=== PATIENT | male | born 1965 | race Caucasian/White ===

== ENCOUNTER 2021-09-29 18:16 | Inpatient (IN) ==
[2021-09-29] MEDS: traZODone 50 MG TABLET PO SCH (21:02)
[2021-09-29] MEDS: Pregabalin 75 MG CAPSULE PO SCH (21:02)
[2021-09-29] MEDS: Apixaban 5 MG TABLET PO SCH (21:03)
[2021-09-29] MEDS: Furosemide 40 MG TABLET PO SCH (21:05)
[2021-09-30] MEDS ORDERED: lisinopriL 20 MG TABLET PO SCH (09:00)
[2021-09-30 10:11] LABS: Hematocrit 35.4 % (37.5-50.1); Hemoglobin 10.9 g/dL (12.9-16.9); Mean Corpuscular HGB Conc 30.8 g/dL (31.6-35.5); Mean Corpuscular Hemoglobin 26.6 pg (28.0-33.3); Mean Corpuscular Volume 86.3 fL (83.0-100.0); Mean Platelet Volume 11.4 fL (9.4-12.4); Platelet Count 181 K/mcL (140-400); Red Cell Distribution Width 17.2 % (11.5-14.5); White Blood Count 6.6 K/mcL (4.3-11.1)
[2021-09-30] MEDS: levoFLOXacin 750 MG TABLET PO SCH (10:24)
[2021-09-30] MEDS: Pregabalin 75 MG CAPSULE PO SCH ×2 (10:24→21:02)
[2021-09-30] MEDS: Fluconazole 100 MG TABLET PO SCH (10:24)
[2021-09-30] MEDS: Apixaban 5 MG TABLET PO SCH ×2 (10:24→21:01)
[2021-09-30] MEDS: Furosemide 40 MG TABLET PO SCH (10:25)
[2021-09-30] MEDS: Aspirin 81 MG TAB.CHEW PO SCH (10:25)
[2021-09-30] MEDS: traZODone 50 MG TABLET PO SCH ×2 (10:25→21:01)
[2021-09-30] MEDS: *HR* Amiodarone 200 MG TABLET PO SCH (10:25)
[2021-09-30] MEDS: Cyanocobalamin (B-12) 1,000 MCG TABLET PO SCH (10:25)
[2021-09-30] MEDS: LIRAGLUTIDE SQ SCH (10:25)
[2021-09-30 10:34] LABS: Alanine Aminotransferase 10 Units/L (7-52); Albumin 2.7 g/dL (3.5-5.7); Albumin/Globulin Ratio 0.9 (1.1-2.2); Alkaline Phosphatase 47 Units/L (34-104); Aspartate Amino Transferase 8 Units/L (13-39); BUN/Creatinine Ratio 14 (6-26); Bilirubin,Total 0.4 mg/dL (0.3-1.0); Blood Urea Nitrogen 9 mg/dL (6-20); Calcium 7.7 mg/dL (8.6-10.3); Carbon Dioxide 29 mEq/L (23-29); Chloride 105 mEq/L (98-107); Glucose 176 mg/dL (70-105); Magnesium 1.3 mg/dL (1.6-2.6); Osmolality,Calculated 293 (280-300); Potassium 3.5 mEq/L (3.5-5.1); Sodium 140 mEq/L (136-145); Total Protein 5.7 g/dL (6.4-8.9); eGFR For African Americans > 60 (> 60); eGFR For Non-African Americans > 60 (> 60)
[2021-09-30] MEDS ORDERED: D5% in Water 1,000 ML IVC PRN (14:51)
[2021-09-30] MEDS ORDERED: Dextrose Gel 15 GM/37.5 ML TUBE PO PRN ×2 (14:51)
[2021-09-30] MEDS ORDERED: *HR* Dextrose 50 % in Water (Syg) 50 ML SYRINGE IVP PRN (14:51)
[2021-09-30] MEDS: Insulin LISPRO 300 UNITS/3 ML VIAL SUBQ SCH ×2 (17:29→21:03)
[2021-10-01] MEDS: *HR* OxyCODONE/APAP 10/325 TABLET PO PRN ×2 (03:06→13:19)
[2021-10-01] MEDS: traZODone 50 MG TABLET PO SCH ×2 (07:56→22:53)
[2021-10-01] MEDS: Apixaban 5 MG TABLET PO SCH ×2 (07:56→22:53)
[2021-10-01] MEDS: Pregabalin 75 MG CAPSULE PO SCH ×2 (07:56→22:53)
[2021-10-01] MEDS: *HR* Amiodarone 200 MG TABLET PO SCH (07:56)
[2021-10-01] MEDS: Insulin LISPRO 300 UNITS/3 ML VIAL SUBQ SCH ×4 (07:57→22:54)
[2021-10-01] MEDS: Cyanocobalamin (B-12) 1,000 MCG TABLET PO SCH (07:57)
[2021-10-01] MEDS: Fluconazole 100 MG TABLET PO SCH (07:57)
[2021-10-01] MEDS: levoFLOXacin 750 MG TABLET PO SCH (07:57)
[2021-10-01] MEDS: LIRAGLUTIDE SQ SCH (07:57)
[2021-10-01] MEDS: Aspirin 81 MG TAB.CHEW PO SCH (07:57)
[2021-10-01] MEDS: lisinopriL 20 MG TABLET PO SCH (07:58)
[2021-10-02] MEDS: traZODone 50 MG TABLET PO SCH ×3 (09:37→21:17)
[2021-10-02] MEDS: Aspirin 81 MG TAB.CHEW PO SCH (09:38)
[2021-10-02] MEDS: Apixaban 5 MG TABLET PO SCH ×2 (09:38→21:17)
[2021-10-02] MEDS: levoFLOXacin 750 MG TABLET PO SCH (09:38)
[2021-10-02] MEDS: Fluconazole 100 MG TABLET PO SCH (09:42)
[2021-10-02] MEDS: Cyanocobalamin (B-12) 1,000 MCG TABLET PO SCH (09:42)
[2021-10-02] MEDS: lisinopriL 20 MG TABLET PO SCH (09:42)
[2021-10-02] MEDS: *HR* Amiodarone 200 MG TABLET PO SCH (09:43)
[2021-10-02] MEDS: Pregabalin 75 MG CAPSULE PO SCH ×2 (09:43→21:16)
[2021-10-02] MEDS: LIRAGLUTIDE SQ SCH (09:45)
[2021-10-02] MEDS: Insulin LISPRO 300 UNITS/3 ML VIAL SUBQ SCH ×4 (09:45→21:19)
[2021-10-02] MEDS: Furosemide 40 MG TABLET PO SCH (17:29)
[2021-10-03] MEDS: levoFLOXacin 750 MG TABLET PO SCH (08:44)
[2021-10-03] MEDS: Aspirin 81 MG TAB.CHEW PO SCH (08:44)
[2021-10-03] MEDS: *HR* Amiodarone 200 MG TABLET PO SCH (08:45)
[2021-10-03] MEDS: Apixaban 5 MG TABLET PO SCH ×2 (08:45→21:08)
[2021-10-03] MEDS: Pregabalin 75 MG CAPSULE PO SCH ×2 (08:45→21:08)
[2021-10-03] MEDS: Furosemide 40 MG TABLET PO SCH ×2 (08:46→17:07)
[2021-10-03] MEDS: Insulin LISPRO 300 UNITS/3 ML VIAL SUBQ SCH ×4 (08:46→21:09)
[2021-10-03] MEDS: Cyanocobalamin (B-12) 1,000 MCG TABLET PO SCH (08:46)
[2021-10-03] MEDS: Fluconazole 100 MG TABLET PO SCH (08:46)
[2021-10-03] MEDS: lisinopriL 20 MG TABLET PO SCH (08:46)
[2021-10-03] MEDS: traZODone 50 MG TABLET PO SCH ×2 (08:46→21:08)
[2021-10-03] MEDS: Magnesium Oxide 400 MG TABLET PO SCH ×2 (15:09→21:10)
[2021-10-04 04:51] LABS: Basophils % 0.5 %; Eosinophils # 0.2 K/mcL (0.0-0.6); Eosinophils % 3.3 %; Hematocrit 36.3 % (37.5-50.1); Hemoglobin 11.3 g/dL (12.9-16.9); Immature Granulocytes % 0.5 % (0-4); Lymphocytes # 1.6 K/mcL (0.6-4.6); Lymphocytes % 23.8 %; Mean Corpuscular HGB Conc 31.1 g/dL (31.6-35.5); Mean Corpuscular Hemoglobin 26.8 pg (28.0-33.3); Mean Corpuscular Volume 86.2 fL (83.0-100.0); Mean Platelet Volume 11.7 fL (9.4-12.4); Monocytes # 0.5 K/mcL (0.0-1.3); Monocytes % 7.9 %; Neutrophils # 4.2 K/mcL (1.6-8.9); Platelet Count 181 K/mcL (140-400); Red Blood Count 4.21 M/mcL (4.19-5.50); Red Cell Distribution Width 17.1 % (11.5-14.5); White Blood Count 6.6 K/mcL (4.3-11.1)
[2021-10-04 05:02] LABS: Alanine Aminotransferase 7 Units/L (7-52); Albumin 2.9 g/dL (3.5-5.7); Alkaline Phosphatase 46 Units/L (34-104); Aspartate Amino Transferase 9 Units/L (13-39); BUN/Creatinine Ratio 23 (6-26); Bilirubin,Total 0.5 mg/dL (0.3-1.0); Blood Urea Nitrogen 11 mg/dL (6-20); Calcium 8.4 mg/dL (8.6-10.3); Carbon Dioxide 33 mEq/L (23-29); Chloride 98 mEq/L (98-107); Glucose 135 mg/dL (70-105); Magnesium 1.3 mg/dL (1.6-2.6); Osmolality,Calculated 291 (280-300); Potassium 3.7 mEq/L (3.5-5.1); Sodium 140 mEq/L (136-145); Total Protein 5.9 g/dL (6.4-8.9); eGFR For African Americans > 60 (> 60); eGFR For Non-African Americans > 60 (> 60)
[2021-10-04] MEDS: Aspirin 81 MG TAB.CHEW PO SCH (09:01)
[2021-10-04] MEDS: Pregabalin 75 MG CAPSULE PO SCH ×2 (09:01→20:29)
[2021-10-04] MEDS: Cyanocobalamin (B-12) 1,000 MCG TABLET PO SCH (09:01)
[2021-10-04] MEDS: Apixaban 5 MG TABLET PO SCH ×2 (09:01→20:30)
[2021-10-04] MEDS: Fluconazole 100 MG TABLET PO SCH (09:02)
[2021-10-04] MEDS: *HR* Amiodarone 200 MG TABLET PO SCH (09:03)
[2021-10-04] MEDS: levoFLOXacin 750 MG TABLET PO SCH (09:03)
[2021-10-04] MEDS: Furosemide 40 MG TABLET PO SCH (09:03)
[2021-10-04] MEDS: Insulin LISPRO 300 UNITS/3 ML VIAL SUBQ SCH ×4 (09:03→21:15)
[2021-10-04] MEDS: traZODone 50 MG TABLET PO SCH ×2 (09:04→20:30)
[2021-10-04] MEDS: Magnesium Oxide 400 MG TABLET PO SCH ×2 (09:04→20:29)
[2021-10-04] MEDS: 0.9 % Sodium Chloride 1,000 ML IVC SCH ×2 (09:05→15:40)
[2021-10-04] MEDS: lisinopriL 20 MG TABLET PO SCH (09:05)
[2021-10-04] MEDS ORDERED: 0.9 % Sodium Chloride 500 ML IVC ONE (13:49)
[2021-10-05] MEDS: 0.9 % Sodium Chloride 1,000 ML IVC SCH ×4 (02:36→20:01)
[2021-10-05] MEDS: Insulin LISPRO 300 UNITS/3 ML VIAL SUBQ SCH ×4 (07:29→19:49)
[2021-10-05] MEDS: Pregabalin 75 MG CAPSULE PO SCH ×2 (09:19→20:00)
[2021-10-05] MEDS: Magnesium Oxide 400 MG TABLET PO SCH ×2 (09:19→20:00)
[2021-10-05] MEDS: *HR* Amiodarone 200 MG TABLET PO SCH (09:19)
[2021-10-05] MEDS: traZODone 50 MG TABLET PO SCH ×2 (09:19→19:41)
[2021-10-05] MEDS: Apixaban 5 MG TABLET PO SCH ×2 (09:20→20:00)
[2021-10-05] MEDS: Cyanocobalamin (B-12) 1,000 MCG TABLET PO SCH (09:20)
[2021-10-05] MEDS: lisinopriL 20 MG TABLET PO SCH (09:20)
[2021-10-05] MEDS: Aspirin 81 MG TAB.CHEW PO SCH (09:20)
[2021-10-06] MEDS ORDERED: 0.9 % Sodium Chloride 500 ML IVC ONE ×2 (00:59→06:55)
[2021-10-06] MEDS: 0.9 % Sodium Chloride 1,000 ML IVC SCH ×2 (01:48→23:58)
[2021-10-06] MEDS ORDERED: lisinopriL 10 MG TABLET PO SCH (09:00)
[2021-10-06 09:39] LABS: Hematocrit 38.1 % (37.5-50.1); Hemoglobin 11.4 g/dL (12.9-16.9); Mean Corpuscular HGB Conc 29.9 g/dL (31.6-35.5); Mean Corpuscular Hemoglobin 26.3 pg (28.0-33.3); Mean Corpuscular Volume 87.8 fL (83.0-100.0); Mean Platelet Volume 11.1 fL (9.4-12.4); Platelet Count 224 K/mcL (140-400); Red Blood Count 4.34 M/mcL (4.19-5.50); Red Cell Distribution Width 16.9 % (11.5-14.5); White Blood Count 6.1 K/mcL (4.3-11.1)
[2021-10-06] MEDS: Insulin LISPRO 300 UNITS/3 ML VIAL SUBQ SCH ×4 (09:50→20:27)
[2021-10-06 09:51] LABS: Bilirubin,Urine Negative (Negative); Blood,Urine Trace-intact (Negative); Clarity,Urine Clear (Clear); Color,Urine Yellow (Yellow); Glucose,Urine (UA) Normal (Normal); Ketones,Urine Negative (Negative); Leukocyte Esterase,Urine Small (Negative); Nitrite,Urine Negative (Negative); Protein,Urine Negative (Neg-Trace); Urobilinogen,Urine Normal (Normal)
[2021-10-06 09:54] LABS: Alanine Aminotransferase 8 Units/L (7-52); Albumin 2.7 g/dL (3.5-5.7); Albumin/Globulin Ratio 0.9 (1.1-2.2); Alkaline Phosphatase 51 Units/L (34-104); Aspartate Amino Transferase 7 Units/L (13-39); BUN/Creatinine Ratio 13 (6-26); Bilirubin,Total 0.4 mg/dL (0.3-1.0); Blood Urea Nitrogen 8 mg/dL (6-20); Carbon Dioxide 32 mEq/L (23-29); Chloride 102 mEq/L (98-107); Glucose 153 mg/dL (70-105); Magnesium 1.5 mg/dL (1.6-2.6); Osmolality,Calculated 291 (280-300); Potassium 3.8 mEq/L (3.5-5.1); Sodium 140 mEq/L (136-145); Total Protein 5.7 g/dL (6.4-8.9); eGFR For African Americans > 60 (> 60); eGFR For Non-African Americans > 60 (> 60)
[2021-10-06] MEDS: Apixaban 5 MG TABLET PO SCH ×2 (09:55→20:27)
[2021-10-06] MEDS: Cyanocobalamin (B-12) 1,000 MCG TABLET PO SCH (09:55)
[2021-10-06] MEDS: Aspirin 81 MG TAB.CHEW PO SCH (09:55)
[2021-10-06] MEDS: Magnesium Oxide 400 MG TABLET PO SCH ×2 (09:55→20:27)
[2021-10-06 10:04] LABS: Bacteria,Urine Few per hpf (None-Few); WBC,Urine 15-30 per hpf (0-3)
[2021-10-06] MEDS: *HR* Amiodarone 200 MG TABLET PO SCH (12:13)
[2021-10-06] MEDS: Pregabalin 75 MG CAPSULE PO SCH ×2 (12:13→20:26)
[2021-10-06] MEDS: traZODone 50 MG TABLET PO SCH ×2 (12:17→20:27)
[2021-10-06] MEDS: polyethylene glycoL 3350 17 GM POWD.PACK PO SCH ×2 (17:10→20:26)
[2021-10-07 06:59] LABS: BUN/Creatinine Ratio 22 (6-26); Blood Urea Nitrogen 10 mg/dL (6-20); Calcium 8.4 mg/dL (8.6-10.3); Carbon Dioxide 35 mEq/L (23-29); Chloride 100 mEq/L (98-107); Glucose 180 mg/dL (70-105); Osmolality,Calculated 290 (280-300); Potassium 3.9 mEq/L (3.5-5.1); Sodium 138 mEq/L (136-145); eGFR For African Americans > 60 (> 60); eGFR For Non-African Americans > 60 (> 60)
[2021-10-07] MEDS: polyethylene glycoL 3350 17 GM POWD.PACK PO SCH ×2 (08:45→20:55)
[2021-10-07] MEDS: Aspirin 81 MG TAB.CHEW PO SCH (08:48)
[2021-10-07] MEDS: Pregabalin 75 MG CAPSULE PO SCH ×2 (08:48→20:53)
[2021-10-07] MEDS: Insulin LISPRO 300 UNITS/3 ML VIAL SUBQ SCH ×4 (08:48→20:54)
[2021-10-07] MEDS: Apixaban 5 MG TABLET PO SCH ×2 (08:49→20:54)
[2021-10-07] MEDS: Cyanocobalamin (B-12) 1,000 MCG TABLET PO SCH (08:49)
[2021-10-07] MEDS: *HR* Amiodarone 200 MG TABLET PO SCH (08:49)
[2021-10-07] MEDS: Magnesium Oxide 400 MG TABLET PO SCH ×2 (08:50→20:54)
[2021-10-07] MEDS: lisinopriL 5 MG TABLET PO SCH (08:50)
[2021-10-07] MEDS: 0.9 % Sodium Chloride 1,000 ML IVC SCH ×3 (08:56→17:30)
[2021-10-07] MEDS: *HR* OxyCODONE/APAP 10/325 TABLET PO PRN (19:32)
[2021-10-07] MEDS: traZODone 50 MG TABLET PO SCH (20:54)
[2021-10-08] MEDS: 0.9 % Sodium Chloride 1,000 ML IVC SCH ×2 (01:57→10:47)
[2021-10-08] MEDS: *HR* OxyCODONE/APAP 10/325 TABLET PO PRN ×3 (01:58→21:37)
[2021-10-08] MEDS: Pregabalin 75 MG CAPSULE PO SCH ×2 (07:56→21:38)
[2021-10-08] MEDS: Aspirin 81 MG TAB.CHEW PO SCH (07:57)
[2021-10-08] MEDS: lisinopriL 5 MG TABLET PO SCH (07:57)
[2021-10-08] MEDS: Magnesium Oxide 400 MG TABLET PO SCH ×2 (07:57→21:37)
[2021-10-08] MEDS: Cyanocobalamin (B-12) 1,000 MCG TABLET PO SCH (07:58)
[2021-10-08] MEDS: polyethylene glycoL 3350 17 GM POWD.PACK PO SCH ×2 (07:58→21:36)
[2021-10-08] MEDS: Apixaban 5 MG TABLET PO SCH ×2 (07:58→21:38)
[2021-10-08] MEDS: *HR* Amiodarone 200 MG TABLET PO SCH (07:58)
[2021-10-08 10:35] LABS: Hematocrit 35.4 % (37.5-50.1); Hemoglobin 10.8 g/dL (12.9-16.9); Mean Corpuscular HGB Conc 30.5 g/dL (31.6-35.5); Mean Corpuscular Hemoglobin 26.6 pg (28.0-33.3); Mean Corpuscular Volume 87.2 fL (83.0-100.0); Mean Platelet Volume 10.8 fL (9.4-12.4); Platelet Count 222 K/mcL (140-400); Red Blood Count 4.06 M/mcL (4.19-5.50); Red Cell Distribution Width 16.9 % (11.5-14.5); White Blood Count 5.8 K/mcL (4.3-11.1)
[2021-10-08 10:54] LABS: Alanine Aminotransferase 10 Units/L (7-52); Albumin 2.7 g/dL (3.5-5.7); Albumin/Globulin Ratio 0.9 (1.1-2.2); Alkaline Phosphatase 55 Units/L (34-104); Aspartate Amino Transferase 8 Units/L (13-39); BUN/Creatinine Ratio 17 (6-26); Bilirubin,Total 0.3 mg/dL (0.3-1.0); Blood Urea Nitrogen 9 mg/dL (6-20); Carbon Dioxide 33 mEq/L (23-29); Chloride 103 mEq/L (98-107); Globulin 2.9 g/dL (2.4-3.5); Glucose 173 mg/dL (70-105); Magnesium 1.4 mg/dL (1.6-2.6); Osmolality,Calculated 293 (280-300); Potassium 3.8 mEq/L (3.5-5.1); Sodium 140 mEq/L (136-145); Total Protein 5.6 g/dL (6.4-8.9); eGFR For African Americans > 60 (> 60); eGFR For Non-African Americans > 60 (> 60)
[2021-10-08] MEDS: Insulin LISPRO 300 UNITS/3 ML VIAL SUBQ SCH ×3 (13:51→21:39)
[2021-10-08] MEDS: Cefepime HCl 2,000 MG in 0.9 % Sodium Chloride Mini Bag 100 ML IVPB SCH (19:32)
[2021-10-08] MEDS ORDERED: Insulin DETEMIR 100 UNIT/ML per UNIT SUBQ SCH (21:00)
[2021-10-08] MEDS: traZODone 50 MG TABLET PO SCH (21:38)
[2021-10-09] MEDS: Cefepime HCl 2,000 MG in 0.9 % Sodium Chloride Mini Bag 100 ML IVPB SCH (05:31)
[2021-10-09] MEDS: *HR* OxyCODONE/APAP 10/325 TABLET PO PRN ×2 (05:31→09:41)
[2021-10-09] MEDS: Magnesium Oxide 400 MG TABLET PO SCH ×2 (09:11→21:23)
[2021-10-09] MEDS: Pregabalin 75 MG CAPSULE PO SCH ×2 (09:12→21:07)
[2021-10-09] MEDS: Aspirin 81 MG TAB.CHEW PO SCH (09:12)
[2021-10-09] MEDS: lisinopriL 5 MG TABLET PO SCH (09:12)
[2021-10-09] MEDS: Apixaban 5 MG TABLET PO SCH ×2 (09:13→21:07)
[2021-10-09] MEDS: *HR* Amiodarone 200 MG TABLET PO SCH (09:13)
[2021-10-09] MEDS: Cyanocobalamin (B-12) 1,000 MCG TABLET PO SCH (09:13)
[2021-10-09] MEDS: Insulin DETEMIR 100 UNIT/ML X5UNITS SUBQ SCH ×2 (09:13→21:31)
[2021-10-09] MEDS: Insulin LISPRO 300 UNITS/3 ML VIAL SUBQ SCH ×4 (09:15→21:21)
[2021-10-09] MEDS: polyethylene glycoL 3350 17 GM POWD.PACK PO SCH ×2 (09:19→21:08)
[2021-10-09] MEDS: Piperacillin/Tazobactam 3.375 GM in 0.9 % Sodium Chloride Mini Bag 100 ML IVPB SCH ×2 (16:45→23:47)
[2021-10-10] MEDS: Bisacodyl 10 MG RECTAL SUPPOSITORY RC PRN ×2 (04:47→14:03)
[2021-10-10 05:00] LABS: Hematocrit 36.1 % (37.5-50.1); Hemoglobin 11.1 g/dL (12.9-16.9); Mean Corpuscular HGB Conc 30.7 g/dL (31.6-35.5); Mean Corpuscular Hemoglobin 26.6 pg (28.0-33.3); Mean Corpuscular Volume 86.4 fL (83.0-100.0); Mean Platelet Volume 11.3 fL (9.4-12.4); Platelet Count 249 K/mcL (140-400); Red Blood Count 4.18 M/mcL (4.19-5.50); Red Cell Distribution Width 17.1 % (11.5-14.5)
[2021-10-10 05:22] LABS: Alanine Aminotransferase 16 Units/L (7-52); Albumin 2.8 g/dL (3.5-5.7); Albumin/Globulin Ratio 0.9 (1.1-2.2); Alkaline Phosphatase 60 Units/L (34-104); Aspartate Amino Transferase 11 Units/L (13-39); BUN/Creatinine Ratio 17 (6-26); Bilirubin,Total 0.5 mg/dL (0.3-1.0); Blood Urea Nitrogen 9 mg/dL (6-20); Calcium 8.3 mg/dL (8.6-10.3); Carbon Dioxide 32 mEq/L (23-29); Chloride 99 mEq/L (98-107); Globulin 3.1 g/dL (2.4-3.5); Glucose 187 mg/dL (70-105); Magnesium 1.5 mg/dL (1.6-2.6); Osmolality,Calculated 288 (280-300); Potassium 4.3 mEq/L (3.5-5.1); Sodium 137 mEq/L (136-145); Total Protein 5.9 g/dL (6.4-8.9); eGFR For African Americans > 60 (> 60); eGFR For Non-African Americans > 60 (> 60)
[2021-10-10] MEDS: Piperacillin/Tazobactam 3.375 GM in 0.9 % Sodium Chloride Mini Bag 100 ML IVPB SCH ×3 (08:34→23:47)
[2021-10-10] MEDS: Insulin DETEMIR 100 UNIT/ML X5UNITS SUBQ SCH ×2 (08:34→21:12)
[2021-10-10] MEDS: Insulin LISPRO 300 UNITS/3 ML VIAL SUBQ SCH ×4 (08:34→20:51)
[2021-10-10] MEDS: *HR* Amiodarone 200 MG TABLET PO SCH (08:36)
[2021-10-10] MEDS: Aspirin 81 MG TAB.CHEW PO SCH (08:36)
[2021-10-10] MEDS: lisinopriL 5 MG TABLET PO SCH (08:36)
[2021-10-10] MEDS: Apixaban 5 MG TABLET PO SCH ×2 (08:36→21:07)
[2021-10-10] MEDS: Magnesium Oxide 400 MG TABLET PO SCH ×2 (08:36→21:08)
[2021-10-10] MEDS: Cyanocobalamin (B-12) 1,000 MCG TABLET PO SCH (08:36)
[2021-10-10] MEDS: Pregabalin 75 MG CAPSULE PO SCH ×2 (08:36→21:07)
[2021-10-10] MEDS: polyethylene glycoL 3350 17 GM POWD.PACK PO SCH ×2 (08:37→21:08)
[2021-10-10] MEDS: Acetaminophen 325 MG TABLET PO PRN (11:40)
[2021-10-10] MEDS: Sennosides/Docusate Sodium TABLET PO SCH ×2 (14:14→21:07)
[2021-10-10] MEDS: *HR* OxyCODONE/APAP 10/325 TABLET PO PRN (17:19)
[2021-10-10] MEDS: traZODone 50 MG TABLET PO SCH (21:06)
[2021-10-11] MEDS: Bisacodyl 10 MG RECTAL SUPPOSITORY RC SCH ×2 (05:11→08:56)
[2021-10-11] MEDS: Insulin LISPRO 300 UNITS/3 ML VIAL SUBQ SCH ×4 (08:55→20:22)
[2021-10-11] MEDS: polyethylene glycoL 3350 17 GM POWD.PACK PO SCH ×2 (09:06→20:36)
[2021-10-11] MEDS: Insulin DETEMIR 100 UNIT/ML X5UNITS SUBQ SCH ×2 (09:07→20:37)
[2021-10-11] MEDS: Piperacillin/Tazobactam 3.375 GM in 0.9 % Sodium Chloride Mini Bag 100 ML IVPB SCH (09:08)
[2021-10-11] MEDS: Cyanocobalamin (B-12) 1,000 MCG TABLET PO SCH (09:12)
[2021-10-11] MEDS: Sennosides/Docusate Sodium TABLET PO SCH ×2 (09:13→20:34)
[2021-10-11] MEDS: Pregabalin 75 MG CAPSULE PO SCH ×2 (09:13→20:35)
[2021-10-11] MEDS: Magnesium Oxide 400 MG TABLET PO SCH ×2 (09:13→20:36)
[2021-10-11] MEDS: Apixaban 5 MG TABLET PO SCH ×2 (09:13→20:34)
[2021-10-11] MEDS: lisinopriL 5 MG TABLET PO SCH (09:13)
[2021-10-11] MEDS: Aspirin 81 MG TAB.CHEW PO SCH (09:13)
[2021-10-11] MEDS ORDERED: Lactulose Oral Soln 20 GM/30 ML UDC PO PRN (11:19)
[2021-10-11] MEDS: *HR* Amiodarone 200 MG TABLET PO SCH (12:04)
[2021-10-11] MEDS: Bisacodyl 10 MG RECTAL SUPPOSITORY RC PRN (15:00)
[2021-10-11] MEDS: Meropenem 1,000 MG in Water for inj. (sterile) 20 ML IVP SCH ×2 (17:11→23:28)
[2021-10-11] MEDS: traZODone 50 MG TABLET PO SCH (20:37)
[2021-10-12 04:50] LABS: Hematocrit 36.4 % (37.5-50.1); Hemoglobin 11.2 g/dL (12.9-16.9); Mean Corpuscular HGB Conc 30.8 g/dL (31.6-35.5); Mean Corpuscular Hemoglobin 26.9 pg (28.0-33.3); Mean Corpuscular Volume 87.3 fL (83.0-100.0); Mean Platelet Volume 11.4 fL (9.4-12.4); Platelet Count 321 K/mcL (140-400); Red Blood Count 4.17 M/mcL (4.19-5.50); Red Cell Distribution Width 17.7 % (11.5-14.5); White Blood Count 8.6 K/mcL (4.3-11.1)
[2021-10-12] MEDS: Insulin LISPRO 300 UNITS/3 ML VIAL SUBQ SCH ×4 (09:21→21:07)
[2021-10-12] MEDS: Sennosides/Docusate Sodium TABLET PO SCH ×2 (09:36→21:04)
[2021-10-12] MEDS: Apixaban 5 MG TABLET PO SCH ×2 (09:36→21:04)
[2021-10-12] MEDS: Aspirin 81 MG TAB.CHEW PO SCH (09:36)
[2021-10-12] MEDS: Pregabalin 75 MG CAPSULE PO SCH ×2 (09:36→21:04)
[2021-10-12] MEDS: Insulin DETEMIR 100 UNIT/ML X5UNITS SUBQ SCH ×2 (09:37→21:07)
[2021-10-12] MEDS: Meropenem 1,000 MG in Water for inj. (sterile) 20 ML IVP SCH ×2 (09:37→17:49)
[2021-10-12] MEDS: *HR* Amiodarone 200 MG TABLET PO SCH (09:37)
[2021-10-12] MEDS: Cyanocobalamin (B-12) 1,000 MCG TABLET PO SCH (09:37)
[2021-10-12] MEDS: Magnesium Oxide 400 MG TABLET PO SCH ×2 (09:38→21:05)
[2021-10-12] MEDS: Bisacodyl 10 MG RECTAL SUPPOSITORY RC SCH (09:38)
[2021-10-12] MEDS: polyethylene glycoL 3350 17 GM POWD.PACK PO SCH ×2 (09:38→21:04)
[2021-10-12] MEDS: traZODone 50 MG TABLET PO SCH (21:05)
[2021-10-13] MEDS: Meropenem 1,000 MG in Water for inj. (sterile) 20 ML IVP SCH ×3 (00:52→17:22)
[2021-10-13] MEDS: Acetaminophen 325 MG TABLET PO PRN ×2 (06:06→20:29)
[2021-10-13] MEDS: Insulin LISPRO 300 UNITS/3 ML VIAL SUBQ SCH ×4 (08:54→20:29)
[2021-10-13] MEDS: *HR* Amiodarone 200 MG TABLET PO SCH (08:58)
[2021-10-13] MEDS: Aspirin 81 MG TAB.CHEW PO SCH (08:58)
[2021-10-13] MEDS: Magnesium Oxide 400 MG TABLET PO SCH ×2 (08:59→20:29)
[2021-10-13] MEDS: Apixaban 5 MG TABLET PO SCH ×2 (08:59→20:29)
[2021-10-13] MEDS: Pregabalin 75 MG CAPSULE PO SCH ×2 (08:59→20:29)
[2021-10-13] MEDS: Sennosides/Docusate Sodium TABLET PO SCH (08:59)
[2021-10-13] MEDS: Bisacodyl 10 MG RECTAL SUPPOSITORY RC SCH (09:00)
[2021-10-13] MEDS: Cyanocobalamin (B-12) 1,000 MCG TABLET PO SCH (09:00)
[2021-10-13] MEDS: polyethylene glycoL 3350 17 GM POWD.PACK PO SCH ×2 (09:01→20:30)
[2021-10-13] MEDS: Insulin DETEMIR 100 UNIT/ML X5UNITS SUBQ SCH ×2 (09:10→20:28)
[2021-10-13] MEDS: traZODone 50 MG TABLET PO SCH (20:28)
[2021-10-14] MEDS: Meropenem 1,000 MG in Water for inj. (sterile) 20 ML IVP SCH ×4 (00:59→21:59)
[2021-10-14 06:06] LABS: Basophils # 0.1 K/mcL (0.0-0.2); Basophils % 0.6 %; Eosinophils # 0.2 K/mcL (0.0-0.6); Eosinophils % 2.1 %; Hematocrit 38.4 % (37.5-50.1); Hemoglobin 11.9 g/dL (12.9-16.9); Immature Granulocytes % 0.9 % (0-4); Lymphocytes # 2.3 K/mcL (0.6-4.6); Lymphocytes % 28.1 %; Mean Corpuscular Hemoglobin 26.6 pg (28.0-33.3); Mean Corpuscular Volume 85.9 fL (83.0-100.0); Monocytes # 0.7 K/mcL (0.0-1.3); Monocytes % 8.5 %; Neutrophils # 4.8 K/mcL (1.6-8.9); Platelet Count 348 K/mcL (140-400); Red Blood Count 4.47 M/mcL (4.19-5.50); Red Cell Distribution Width 17.2 % (11.5-14.5); Segmented Neutrophils % 59.8 %
[2021-10-14 06:37] LABS: BUN/Creatinine Ratio 29 (6-26); Blood Urea Nitrogen 17 mg/dL (6-20); Calcium 8.8 mg/dL (8.6-10.3); Carbon Dioxide 32 mEq/L (23-29); Chloride 98 mEq/L (98-107); Glucose 179 mg/dL (70-105); Osmolality,Calculated 288 (280-300); Potassium 4.1 mEq/L (3.5-5.1); Sodium 136 mEq/L (136-145); eGFR For African Americans > 60 (> 60); eGFR For Non-African Americans > 60 (> 60)
[2021-10-14] MEDS: Insulin LISPRO 300 UNITS/3 ML VIAL SUBQ SCH ×4 (09:00→22:19)
[2021-10-14] MEDS: Magnesium Oxide 400 MG TABLET PO SCH ×2 (09:01→21:56)
[2021-10-14] MEDS: Aspirin 81 MG TAB.CHEW PO SCH (09:01)
[2021-10-14] MEDS: *HR* Amiodarone 200 MG TABLET PO SCH (09:01)
[2021-10-14] MEDS: Apixaban 5 MG TABLET PO SCH (09:01)
[2021-10-14] MEDS: Cyanocobalamin (B-12) 1,000 MCG TABLET PO SCH (09:01)
[2021-10-14] MEDS: Insulin DETEMIR 100 UNIT/ML X5UNITS SUBQ SCH ×2 (09:05→22:00)
[2021-10-14] MEDS: polyethylene glycoL 3350 17 GM POWD.PACK PO SCH ×2 (09:24→22:20)
[2021-10-14] MEDS ORDERED: Silver Nitrate Applicator 1 STICK..EA. TP ONE ×2 (15:04→15:08)
[2021-10-14 17:21] LABS: Basophils # 0.1 K/mcL (0.0-0.2); Basophils % 0.5 %; Eosinophils # 0.2 K/mcL (0.0-0.6); Eosinophils % 1.5 %; Hematocrit 37.4 % (37.5-50.1); Hemoglobin 11.8 g/dL (12.9-16.9); Immature Granulocytes % 0.9 % (0-4); Lymphocytes # 2.5 K/mcL (0.6-4.6); Lymphocytes % 24.3 %; Mean Corpuscular HGB Conc 31.6 g/dL (31.6-35.5); Mean Corpuscular Hemoglobin 26.9 pg (28.0-33.3); Mean Corpuscular Volume 85.2 fL (83.0-100.0); Mean Platelet Volume 10.5 fL (9.4-12.4); Monocytes # 0.8 K/mcL (0.0-1.3); Monocytes % 7.6 %; Neutrophils # 6.7 K/mcL (1.6-8.9); Platelet Count 390 K/mcL (140-400); Red Blood Count 4.39 M/mcL (4.19-5.50); Red Cell Distribution Width 17.2 % (11.5-14.5); Segmented Neutrophils % 65.2 %; White Blood Count 10.3 K/mcL (4.3-11.1)
[2021-10-14 17:28] LABS: INR 1.4; Prothrombin Time 15.7 Seconds (9.4-12.1)
[2021-10-14 17:30] LABS: Activated Partial Thrombo Time 46.3 Seconds (26.0-36.0)
[2021-10-14 17:34] LABS: BUN/Creatinine Ratio 29 (6-26); Blood Urea Nitrogen 17 mg/dL (6-20); Calcium 8.7 mg/dL (8.6-10.3); Carbon Dioxide 30 mEq/L (23-29); Chloride 100 mEq/L (98-107); Glucose 153 mg/dL (70-105); Osmolality,Calculated 287 (280-300); Potassium 4.3 mEq/L (3.5-5.1); Sodium 136 mEq/L (136-145); eGFR For African Americans > 60 (> 60); eGFR For Non-African Americans > 60 (> 60)
[2021-10-14] MEDS: Acetaminophen 325 MG TABLET PO PRN (21:58)
[2021-10-14] MEDS: traZODone 50 MG TABLET PO SCH (21:58)
[2021-10-15] MEDS: Insulin LISPRO 300 UNITS/3 ML VIAL SUBQ SCH ×4 (09:13→21:13)
[2021-10-15] MEDS: Insulin DETEMIR 100 UNIT/ML X5UNITS SUBQ SCH ×2 (09:13→21:13)
[2021-10-15] MEDS: Meropenem 1,000 MG in Water for inj. (sterile) 20 ML IVP SCH ×3 (09:15→21:33)
[2021-10-15] MEDS: Magnesium Oxide 400 MG TABLET PO SCH ×2 (09:18→21:08)
[2021-10-15] MEDS: Aspirin 81 MG TAB.CHEW PO SCH (09:18)
[2021-10-15] MEDS: *HR* Amiodarone 200 MG TABLET PO SCH (09:18)
[2021-10-15] MEDS: Cyanocobalamin (B-12) 1,000 MCG TABLET PO SCH (09:18)
[2021-10-15] MEDS: polyethylene glycoL 3350 17 GM POWD.PACK PO SCH ×2 (09:19→21:33)
[2021-10-15] MEDS: Apixaban 5 MG TABLET PO SCH ×2 (09:23→21:07)
[2021-10-15] MEDS: Menthol 1 EACH LOZENGE PO PRN (21:06)
[2021-10-15] MEDS: Artificial Tears SOLN 15 ML BOTTLE BOTH EYES SCH (21:06)
[2021-10-15] MEDS: Acetaminophen 325 MG TABLET PO PRN (21:08)
[2021-10-15] MEDS: traZODone 50 MG TABLET PO SCH (21:09)
[2021-10-15] MEDS: Pregabalin 75 MG CAPSULE PO SCH (21:51)
[2021-10-16 06:01] LABS: Basophils # 0.1 K/mcL (0.0-0.2); Basophils % 0.8 %; Eosinophils # 0.1 K/mcL (0.0-0.6); Eosinophils % 1.5 %; Hematocrit 36.9 % (37.5-50.1); Hemoglobin 11.6 g/dL (12.9-16.9); Immature Granulocytes % 1.3 % (0-4); Lymphocytes # 2.3 K/mcL (0.6-4.6); Lymphocytes % 25.3 %; Mean Corpuscular HGB Conc 31.4 g/dL (31.6-35.5); Mean Corpuscular Hemoglobin 26.7 pg (28.0-33.3); Mean Corpuscular Volume 84.8 fL (83.0-100.0); Mean Platelet Volume 10.6 fL (9.4-12.4); Monocytes # 0.7 K/mcL (0.0-1.3); Monocytes % 7.9 %; Neutrophils # 5.6 K/mcL (1.6-8.9); Platelet Count 352 K/mcL (140-400); Red Blood Count 4.35 M/mcL (4.19-5.50); Red Cell Distribution Width 17.2 % (11.5-14.5); Segmented Neutrophils % 63.2 %; White Blood Count 8.9 K/mcL (4.3-11.1)
[2021-10-16] MEDS: Insulin LISPRO 300 UNITS/3 ML VIAL SUBQ SCH ×4 (09:40→20:56)
[2021-10-16] MEDS: Aspirin 81 MG TAB.CHEW PO SCH (09:52)
[2021-10-16] MEDS: Apixaban 5 MG TABLET PO SCH ×2 (09:52→20:55)
[2021-10-16] MEDS: Pregabalin 75 MG CAPSULE PO SCH ×2 (09:52→20:54)
[2021-10-16] MEDS: Cyanocobalamin (B-12) 1,000 MCG TABLET PO SCH (09:52)
[2021-10-16] MEDS: *HR* Amiodarone 200 MG TABLET PO SCH (09:53)
[2021-10-16] MEDS: Meropenem 1,000 MG in Water for inj. (sterile) 20 ML IVP SCH ×2 (09:53→17:03)
[2021-10-16] MEDS: Magnesium Oxide 400 MG TABLET PO SCH ×2 (09:53→20:56)
[2021-10-16] MEDS: Insulin DETEMIR 100 UNIT/ML X5UNITS SUBQ SCH ×2 (09:54→20:59)
[2021-10-16] MEDS: polyethylene glycoL 3350 17 GM POWD.PACK PO SCH ×2 (09:54→23:10)
[2021-10-16] MEDS: Menthol 1 EACH LOZENGE PO PRN (10:07)
[2021-10-16] MEDS: Artificial Tears SOLN 15 ML BOTTLE BOTH EYES SCH ×4 (10:07→20:57)
[2021-10-16] MEDS: traZODone 50 MG TABLET PO SCH (20:55)
[2021-10-17] MEDS: Meropenem 1,000 MG in Water for inj. (sterile) 20 ML IVP SCH ×4 (00:09→23:58)
[2021-10-17] MEDS: Aspirin 81 MG TAB.CHEW PO SCH (08:52)
[2021-10-17] MEDS: Pregabalin 75 MG CAPSULE PO SCH ×2 (08:52→20:13)
[2021-10-17] MEDS: Insulin LISPRO 300 UNITS/3 ML VIAL SUBQ SCH ×4 (08:53→20:01)
[2021-10-17] MEDS: Insulin DETEMIR 100 UNIT/ML X5UNITS SUBQ SCH ×2 (08:53→20:14)
[2021-10-17] MEDS: Apixaban 5 MG TABLET PO SCH ×2 (08:53→20:13)
[2021-10-17] MEDS: Cyanocobalamin (B-12) 1,000 MCG TABLET PO SCH (08:53)
[2021-10-17] MEDS: *HR* Amiodarone 200 MG TABLET PO SCH (08:53)
[2021-10-17] MEDS: Magnesium Oxide 400 MG TABLET PO SCH ×3 (08:53→22:25)
[2021-10-17] MEDS: Artificial Tears SOLN 15 ML BOTTLE BOTH EYES SCH ×4 (08:54→20:14)
[2021-10-17] MEDS: polyethylene glycoL 3350 17 GM POWD.PACK PO SCH ×2 (08:54→20:34)
[2021-10-17] MEDS: Acetaminophen 325 MG TABLET PO PRN (08:56)
[2021-10-17] MEDS: traZODone 50 MG TABLET PO SCH (20:13)
[2021-10-18] MEDS: Acetaminophen 325 MG TABLET PO PRN (03:08)
[2021-10-18] MEDS: Meropenem 1,000 MG in Water for inj. (sterile) 20 ML IVP SCH ×3 (07:58→23:18)
[2021-10-18] MEDS: Aspirin 81 MG TAB.CHEW PO SCH (07:59)
[2021-10-18] MEDS: Magnesium Oxide 400 MG TABLET PO SCH ×2 (07:59→23:15)
[2021-10-18] MEDS: Pregabalin 75 MG CAPSULE PO SCH ×2 (07:59→23:15)
[2021-10-18] MEDS: Apixaban 5 MG TABLET PO SCH ×2 (07:59→23:15)
[2021-10-18] MEDS: *HR* Amiodarone 200 MG TABLET PO SCH (07:59)
[2021-10-18] MEDS: Insulin DETEMIR 100 UNIT/ML X5UNITS SUBQ SCH ×2 (08:00→23:18)
[2021-10-18] MEDS: Insulin LISPRO 300 UNITS/3 ML VIAL SUBQ SCH ×4 (08:00→23:17)
[2021-10-18] MEDS: Cyanocobalamin (B-12) 1,000 MCG TABLET PO SCH (08:00)
[2021-10-18] MEDS: polyethylene glycoL 3350 17 GM POWD.PACK PO SCH ×2 (08:09→23:15)
[2021-10-18] MEDS: Artificial Tears SOLN 15 ML BOTTLE BOTH EYES SCH ×4 (09:33→23:16)
[2021-10-18] MEDS ORDERED: Bisacodyl 10 MG RECTAL SUPPOSITORY RC PRN (15:54)
[2021-10-18] MEDS: traZODone 50 MG TABLET PO SCH (23:15)
[2021-10-19 04:53] LABS: Basophils # 0.1 K/mcL (0.0-0.2); Basophils % 0.8 %; Eosinophils # 0.2 K/mcL (0.0-0.6); Eosinophils % 1.6 %; Hematocrit 38.1 % (37.5-50.1); Hemoglobin 11.7 g/dL (12.9-16.9); Immature Granulocytes % 1.2 % (0-4); Lymphocytes # 2.6 K/mcL (0.6-4.6); Lymphocytes % 26.8 %; Mean Corpuscular HGB Conc 30.7 g/dL (31.6-35.5); Mean Corpuscular Hemoglobin 26.7 pg (28.0-33.3); Monocytes # 0.8 K/mcL (0.0-1.3); Monocytes % 7.7 %; Neutrophils # 6.1 K/mcL (1.6-8.9); Platelet Count 364 K/mcL (140-400); Red Blood Count 4.38 M/mcL (4.19-5.50); Red Cell Distribution Width 17.6 % (11.5-14.5); Segmented Neutrophils % 61.9 %; White Blood Count 9.9 K/mcL (4.3-11.1)
[2021-10-19 05:07] LABS: BUN/Creatinine Ratio 27 (6-26); Blood Urea Nitrogen 14 mg/dL (6-20); Calcium 8.7 mg/dL (8.6-10.3); Carbon Dioxide 31 mEq/L (23-29); Chloride 104 mEq/L (98-107); Glucose 134 mg/dL (70-105); Osmolality,Calculated 290 (280-300); Potassium 4.1 mEq/L (3.5-5.1); Sodium 139 mEq/L (136-145); eGFR For African Americans > 60 (> 60); eGFR For Non-African Americans > 60 (> 60)
[2021-10-19] MEDS: Meropenem 1,000 MG in Water for inj. (sterile) 20 ML IVP SCH ×3 (08:14→21:11)
[2021-10-19] MEDS: Aspirin 81 MG TAB.CHEW PO SCH (08:15)
[2021-10-19] MEDS: Insulin DETEMIR 100 UNIT/ML X5UNITS SUBQ SCH ×2 (08:15→21:11)
[2021-10-19] MEDS: Apixaban 5 MG TABLET PO SCH ×2 (08:15→21:08)
[2021-10-19] MEDS: Pregabalin 75 MG CAPSULE PO SCH ×2 (08:15→21:07)
[2021-10-19] MEDS: Artificial Tears SOLN 15 ML BOTTLE BOTH EYES SCH ×4 (08:16→21:05)
[2021-10-19] MEDS: Cyanocobalamin (B-12) 1,000 MCG TABLET PO SCH (08:16)
[2021-10-19] MEDS: *HR* Amiodarone 200 MG TABLET PO SCH (08:16)
[2021-10-19] MEDS: polyethylene glycoL 3350 17 GM POWD.PACK PO SCH ×2 (08:16→21:04)
[2021-10-19] MEDS: Magnesium Oxide 400 MG TABLET PO SCH ×2 (08:16→21:10)
[2021-10-19] MEDS: Insulin LISPRO 300 UNITS/3 ML VIAL SUBQ SCH ×4 (09:17→21:11)
[2021-10-19] MEDS: Menthol 1 EACH LOZENGE PO PRN (21:03)
[2021-10-19] MEDS: Acetaminophen 325 MG TABLET PO PRN (21:07)
[2021-10-19] MEDS: traZODone 50 MG TABLET PO SCH (21:09)
[2021-10-20] MEDS: Insulin LISPRO 300 UNITS/3 ML VIAL SUBQ SCH ×4 (10:08→20:22)
[2021-10-20] MEDS: Pregabalin 75 MG CAPSULE PO SCH ×2 (10:34→20:27)
[2021-10-20] MEDS: Aspirin 81 MG TAB.CHEW PO SCH (10:34)
[2021-10-20] MEDS: Magnesium Oxide 400 MG TABLET PO SCH ×2 (10:34→20:26)
[2021-10-20] MEDS: Apixaban 5 MG TABLET PO SCH ×2 (10:34→20:26)
[2021-10-20] MEDS: *HR* Amiodarone 200 MG TABLET PO SCH (10:35)
[2021-10-20] MEDS: Artificial Tears SOLN 15 ML BOTTLE BOTH EYES SCH ×4 (10:35→20:25)
[2021-10-20] MEDS: polyethylene glycoL 3350 17 GM POWD.PACK PO SCH ×2 (10:35→20:27)
[2021-10-20] MEDS: Meropenem 1,000 MG in Water for inj. (sterile) 20 ML IVP SCH ×3 (10:35→22:25)
[2021-10-20] MEDS: Cyanocobalamin (B-12) 1,000 MCG TABLET PO SCH (10:36)
[2021-10-20] MEDS: Insulin DETEMIR 100 UNIT/ML X5UNITS SUBQ SCH ×2 (10:44→20:22)
[2021-10-20] MEDS: Menthol 1 EACH LOZENGE PO PRN (20:26)
[2021-10-20] MEDS: traZODone 50 MG TABLET PO SCH (20:27)
[2021-10-21] MEDS: Menthol 1 EACH LOZENGE PO PRN ×2 (05:44→21:49)
[2021-10-21] MEDS: Pregabalin 75 MG CAPSULE PO SCH ×2 (08:41→21:48)
[2021-10-21] MEDS: Aspirin 81 MG TAB.CHEW PO SCH (08:41)
[2021-10-21] MEDS: *HR* Amiodarone 200 MG TABLET PO SCH (08:41)
[2021-10-21] MEDS: Apixaban 5 MG TABLET PO SCH ×2 (08:41→21:48)
[2021-10-21] MEDS: Cyanocobalamin (B-12) 1,000 MCG TABLET PO SCH (08:41)
[2021-10-21] MEDS: Magnesium Oxide 400 MG TABLET PO SCH ×2 (08:41→21:49)
[2021-10-21] MEDS: Meropenem 1,000 MG in Water for inj. (sterile) 20 ML IVP SCH ×2 (08:42→17:04)
[2021-10-21] MEDS: Insulin DETEMIR 100 UNIT/ML X5UNITS SUBQ SCH ×2 (08:42→21:42)
[2021-10-21] MEDS: Insulin LISPRO 300 UNITS/3 ML VIAL SUBQ SCH ×4 (08:42→21:42)
[2021-10-21] MEDS: Artificial Tears SOLN 15 ML BOTTLE BOTH EYES SCH ×4 (08:43→21:47)
[2021-10-21] MEDS: polyethylene glycoL 3350 17 GM POWD.PACK PO SCH ×2 (08:43→21:49)
[2021-10-21] MEDS ORDERED: Ipratropium/Albuterol Neb 3 ML IH PRN (11:34)
[2021-10-21] MEDS: traZODone 50 MG TABLET PO SCH (21:49)
[2021-10-21] MEDS: Acetaminophen 325 MG TABLET PO PRN (21:50)
[2021-10-22] MEDS: Magnesium Oxide 400 MG TABLET PO SCH ×2 (08:12→20:56)
[2021-10-22] MEDS: Aspirin 81 MG TAB.CHEW PO SCH (08:12)
[2021-10-22] MEDS: polyethylene glycoL 3350 17 GM POWD.PACK PO SCH ×2 (08:12→21:02)
[2021-10-22] MEDS: Apixaban 5 MG TABLET PO SCH ×2 (08:13→20:56)
[2021-10-22] MEDS: Artificial Tears SOLN 15 ML BOTTLE BOTH EYES SCH ×4 (08:13→20:54)
[2021-10-22] MEDS: Pregabalin 75 MG CAPSULE PO SCH ×2 (08:13→20:55)
[2021-10-22] MEDS: *HR* Amiodarone 200 MG TABLET PO SCH (08:13)
[2021-10-22] MEDS: Cyanocobalamin (B-12) 1,000 MCG TABLET PO SCH (08:13)
[2021-10-22] MEDS: Insulin LISPRO 300 UNITS/3 ML VIAL SUBQ SCH ×4 (08:14→20:56)
[2021-10-22] MEDS: Insulin DETEMIR 100 UNIT/ML X5UNITS SUBQ SCH ×2 (08:14→20:56)
[2021-10-22] MEDS: Ipratropium/Albuterol Neb 3 ML IH SCH ×2 (16:54→20:03)
[2021-10-22] MEDS: predniSONE 20 MG TABLET PO SCH (17:06)
[2021-10-22] MEDS: traZODone 50 MG TABLET PO SCH (20:55)
[2021-10-22] MEDS: GuaiFENesin/Dextromethorphan TABLET PO SCH (20:56)
[2021-10-22] MEDS: Menthol 1 EACH LOZENGE PO PRN (21:26)
[2021-10-23] MEDS: Ipratropium/Albuterol Neb 3 ML IH SCH ×7 (00:05→23:52)
[2021-10-23] MEDS: GuaiFENesin/Dextromethorphan TABLET PO SCH ×2 (07:57→21:24)
[2021-10-23] MEDS: polyethylene glycoL 3350 17 GM POWD.PACK PO SCH ×2 (07:57→21:25)
[2021-10-23] MEDS: Apixaban 5 MG TABLET PO SCH ×2 (07:57→21:25)
[2021-10-23] MEDS: Magnesium Oxide 400 MG TABLET PO SCH ×2 (07:57→21:25)
[2021-10-23] MEDS: Cyanocobalamin (B-12) 1,000 MCG TABLET PO SCH (07:57)
[2021-10-23] MEDS: Insulin DETEMIR 100 UNIT/ML X5UNITS SUBQ SCH ×2 (07:58→21:29)
[2021-10-23] MEDS: Aspirin 81 MG TAB.CHEW PO SCH (07:58)
[2021-10-23] MEDS: Pregabalin 75 MG CAPSULE PO SCH ×2 (07:58→21:25)
[2021-10-23] MEDS: *HR* Amiodarone 200 MG TABLET PO SCH (07:58)
[2021-10-23] MEDS: predniSONE 20 MG TABLET PO SCH (07:58)
[2021-10-23] MEDS: Insulin LISPRO 300 UNITS/3 ML VIAL SUBQ SCH ×4 (08:04→21:30)
[2021-10-23] MEDS: Artificial Tears SOLN 15 ML BOTTLE BOTH EYES SCH ×4 (08:08→21:24)
[2021-10-23] MEDS: Acetaminophen 325 MG TABLET PO PRN (10:23)
[2021-10-23] MEDS: traZODone 50 MG TABLET PO SCH (21:24)
[2021-10-24] MEDS: Ipratropium/Albuterol Neb 3 ML IH SCH ×6 (04:54→23:53)
[2021-10-24 05:00] LABS: Hematocrit 39.1 % (37.5-50.1); Hemoglobin 11.9 g/dL (12.9-16.9); Mean Corpuscular HGB Conc 30.4 g/dL (31.6-35.5); Mean Corpuscular Hemoglobin 26.6 pg (28.0-33.3); Mean Corpuscular Volume 87.3 fL (83.0-100.0); Mean Platelet Volume 11.5 fL (9.4-12.4); Platelet Count 346 K/mcL (140-400); Red Blood Count 4.48 M/mcL (4.19-5.50); Red Cell Distribution Width 17.2 % (11.5-14.5); White Blood Count 13.8 K/mcL (4.3-11.1)
[2021-10-24 05:19] LABS: Alanine Aminotransferase 20 Units/L (7-52); Albumin 3.3 g/dL (3.5-5.7); Albumin/Globulin Ratio 1.1 (1.1-2.2); Alkaline Phosphatase 63 Units/L (34-104); Aspartate Amino Transferase 9 Units/L (13-39); BUN/Creatinine Ratio 36 (6-26); Bilirubin,Total 0.4 mg/dL (0.3-1.0); Blood Urea Nitrogen 25 mg/dL (6-20); Calcium 9.1 mg/dL (8.6-10.3); Carbon Dioxide 32 mEq/L (23-29); Chloride 100 mEq/L (98-107); Globulin 3.1 g/dL (2.4-3.5); Glucose 166 mg/dL (70-105); Magnesium 1.9 mg/dL (1.6-2.6); Osmolality,Calculated 294 (280-300); Potassium 4.4 mEq/L (3.5-5.1); Sodium 138 mEq/L (136-145); Total Protein 6.4 g/dL (6.4-8.9); eGFR For African Americans > 60 (> 60); eGFR For Non-African Americans > 60 (> 60)
[2021-10-24] MEDS: Aspirin 81 MG TAB.CHEW PO SCH (08:06)
[2021-10-24] MEDS: Magnesium Oxide 400 MG TABLET PO SCH ×2 (08:06→21:23)
[2021-10-24] MEDS: polyethylene glycoL 3350 17 GM POWD.PACK PO SCH ×2 (08:06→21:09)
[2021-10-24] MEDS: Pregabalin 75 MG CAPSULE PO SCH ×2 (08:07→21:09)
[2021-10-24] MEDS: Cyanocobalamin (B-12) 1,000 MCG TABLET PO SCH (08:07)
[2021-10-24] MEDS: *HR* Amiodarone 200 MG TABLET PO SCH (08:08)
[2021-10-24] MEDS: Apixaban 5 MG TABLET PO SCH ×2 (08:08→21:10)
[2021-10-24] MEDS: GuaiFENesin/Dextromethorphan TABLET PO SCH ×2 (08:08→21:10)
[2021-10-24] MEDS: predniSONE 20 MG TABLET PO SCH (08:08)
[2021-10-24] MEDS: Insulin DETEMIR 100 UNIT/ML X5UNITS SUBQ SCH ×2 (08:08→21:26)
[2021-10-24] MEDS: Artificial Tears SOLN 15 ML BOTTLE BOTH EYES SCH ×4 (08:09→21:22)
[2021-10-24] MEDS: Insulin LISPRO 300 UNITS/3 ML VIAL SUBQ SCH ×4 (08:09→21:22)
[2021-10-24] MEDS ORDERED: MOM Conc 10 ML UD.LIQ PO PRN (15:42)
[2021-10-24 20:13] VITALS: BP 115/71; PULSE 111; TEMP 98.2
[2021-10-24] MEDS ORDERED: Sennosides 8.6 MG TABLET PO SCH (21:00)
[2021-10-24] MEDS: traZODone 50 MG TABLET PO SCH (21:10)
[2021-10-24 23:56] VITALS: RESP 20; O2SAT 95
[2021-10-25] MEDS ORDERED: *HR* LORazepam 2 MG/ML VIAL IVP ONE (03:26)
[2021-10-25] MEDS ORDERED: *HR* LORazepam 2 MG/ML VIAL ONE (03:28)
[2021-10-25 03:53] LABS: ABG Base Excess 2 mEq/L (-2 to 3); ABG HCO3 31 mEq/L (21-27); ABG Oxygen Saturation 99 % (95-98); ABG PCO2 70 mmHg (35-45); ABG PH 7.26 pH Units (7.32-7.45); ABG PO2 166 mmHg (85-104); ABG TCO2 33 mEq/L (20-26)
[2021-10-25] MEDS ORDERED: Furosemide 20 MG/2 ML VIAL IVP ONE (04:04)
[2021-10-25] MEDS ORDERED: 0.9 % Sodium Chloride 1,000 ML ONE (04:07)
[2021-10-25] MEDS: Ipratropium/Albuterol Neb 3 ML IH SCH (04:23)
== END 2021-10-25 05:40 | disposition short-term general hospital (02) | DRG 579 ==
LOC: INPGRE 18:23
PROVIDERS: ADMIT Family Medicine; ATTEND Family Medicine

== ENCOUNTER 2021-11-02 06:50 | Inpatient (IN) ==
[2021-11-04] MEDS ORDERED: D5% in Water 1,000 ML IVC PRN (19:09)
[2021-11-04] MEDS ORDERED: Dextrose Gel 15 GM/37.5 ML TUBE PO PRN ×2 (19:09)
[2021-11-04] MEDS ORDERED: *HR* Dextrose 50 % in Water (Syg) 50 ML SYRINGE IVP PRN (19:09)
[2021-11-04] MEDS ORDERED: Furosemide 40 MG TABLET PO SCH (19:30)
[2021-11-04] MEDS: Apixaban 5 MG TABLET PO SCH (20:32)
[2021-11-04] MEDS: traZODone 50 MG TABLET PO SCH (20:32)
[2021-11-04] MEDS: Doxycycline 100 MG CAPSULE PO SCH (20:35)
[2021-11-04] MEDS ORDERED: PREGABALIN 300 MG PO SCH (21:00)
[2021-11-05] MEDS: *HR* OxyCODONE/APAP 10/325 TABLET PO PRN ×2 (04:05→19:56)
[2021-11-05 06:24] LABS: Basophils # 0.1 K/mcL (0.0-0.2); Basophils % 0.5 %; Eosinophils # 0.3 K/mcL (0.0-0.6); Eosinophils % 2.7 %; Hematocrit 37.8 % (37.5-50.1); Hemoglobin 11.5 g/dL (12.9-16.9); Immature Granulocytes % 0.7 % (0-4); Lymphocytes # 2.4 K/mcL (0.6-4.6); Lymphocytes % 21.1 %; Mean Corpuscular HGB Conc 30.4 g/dL (31.6-35.5); Mean Corpuscular Hemoglobin 26.7 pg (28.0-33.3); Mean Corpuscular Volume 87.7 fL (83.0-100.0); Monocytes # 0.9 K/mcL (0.0-1.3); Monocytes % 7.7 %; Platelet Count 271 K/mcL (140-400); Red Blood Count 4.31 M/mcL (4.19-5.50); Segmented Neutrophils % 67.3 %; White Blood Count 11.4 K/mcL (4.3-11.1)
[2021-11-05 06:57] LABS: Neutrophils # 7.7 K/mcL (1.6-8.9)
[2021-11-05 07:11] LABS: BUN/Creatinine Ratio 27 (6-26); Blood Urea Nitrogen 21 mg/dL (6-20); Calcium 8.3 mg/dL (8.6-10.3); Carbon Dioxide 35 mEq/L (23-29); Chloride 95 mEq/L (98-107); Glucose 319 mg/dL (70-105); Osmolality,Calculated 301 (280-300); Potassium 3.3 mEq/L (3.5-5.1); Sodium 138 mEq/L (136-145); eGFR For African Americans > 60 (> 60); eGFR For Non-African Americans > 60 (> 60)
[2021-11-05] MEDS ORDERED: lisinopriL 20 MG TABLET PO SCH (09:00)
[2021-11-05] MEDS: Insulin LISPRO 300 UNITS/3 ML VIAL SUBQ SCH ×3 (10:00→17:50)
[2021-11-05] MEDS: *HR* Amiodarone 200 MG TABLET PO SCH (10:01)
[2021-11-05] MEDS: Cyanocobalamin (B-12) 1,000 MCG TABLET PO SCH (10:01)
[2021-11-05] MEDS: Doxycycline 100 MG CAPSULE PO SCH ×2 (10:01→19:56)
[2021-11-05] MEDS: Aspirin 81 MG TAB.CHEW PO SCH (10:01)
[2021-11-05] MEDS: Apixaban 5 MG TABLET PO SCH ×2 (10:01→19:56)
[2021-11-05] MEDS: (Empagliflozin [Jardiance] 25 MG Tablet) PO SCH (10:02)
[2021-11-05] MEDS: Furosemide 40 MG TABLET PO SCH (10:02)
[2021-11-05] MEDS: polyethylene glycoL 3350 17 GM POWD.PACK PO SCH (10:02)
[2021-11-05] MEDS: traZODone 50 MG TABLET PO SCH ×2 (10:06→19:56)
[2021-11-05] MEDS: Sennosides 8.6 MG TABLET PO SCH ×2 (12:42→19:57)
[2021-11-05] MEDS: Loratadine/Pseudophed (12 HR) 1 EACH TABLET PO SCH (12:51)
[2021-11-06] MEDS: Loratadine/Pseudophed (12 HR) 1 EACH TABLET PO SCH ×2 (04:50→09:02)
[2021-11-06] MEDS: Sennosides 8.6 MG TABLET PO SCH ×2 (08:59→22:07)
[2021-11-06] MEDS: Aspirin 81 MG TAB.CHEW PO SCH (08:59)
[2021-11-06] MEDS: Apixaban 5 MG TABLET PO SCH ×2 (08:59→22:06)
[2021-11-06] MEDS: Doxycycline 100 MG CAPSULE PO SCH ×2 (09:00→22:06)
[2021-11-06] MEDS: *HR* Amiodarone 200 MG TABLET PO SCH (09:00)
[2021-11-06] MEDS: Cyanocobalamin (B-12) 1,000 MCG TABLET PO SCH (09:00)
[2021-11-06] MEDS: Furosemide 40 MG TABLET PO SCH (09:00)
[2021-11-06] MEDS: Insulin LISPRO 300 UNITS/3 ML VIAL SUBQ SCH ×4 (09:01→22:08)
[2021-11-06] MEDS: (Empagliflozin [Jardiance] 25 MG Tablet) PO SCH (09:02)
[2021-11-06] MEDS: traZODone 50 MG TABLET PO SCH ×2 (09:02→22:06)
[2021-11-06] MEDS: polyethylene glycoL 3350 17 GM POWD.PACK PO SCH (09:02)
[2021-11-06] MEDS ORDERED: *HR* Dextrose 50 % in Water (Syg) 50 ML SYRINGE IVP PRN (13:41)
[2021-11-06] MEDS ORDERED: D5% in Water 1,000 ML IVC PRN (13:41)
[2021-11-06] MEDS ORDERED: Dextrose Gel 15 GM/37.5 ML TUBE PO PRN ×2 (13:41)
[2021-11-06] MEDS: GuaiFENesin/Dextromethorphan TABLET PO SCH (22:06)
[2021-11-06] MEDS: Insulin DETEMIR 100 UNIT/ML X5UNITS SUBQ SCH (22:07)
[2021-11-07] MEDS: GuaiFENesin/Dextromethorphan TABLET PO SCH ×2 (09:11→20:59)
[2021-11-07] MEDS: *HR* Amiodarone 200 MG TABLET PO SCH (09:11)
[2021-11-07] MEDS: Furosemide 40 MG TABLET PO SCH (09:11)
[2021-11-07] MEDS: Sennosides 8.6 MG TABLET PO SCH ×2 (09:11→21:00)
[2021-11-07] MEDS: Aspirin 81 MG TAB.CHEW PO SCH (09:11)
[2021-11-07] MEDS: Loratadine 10 MG TABLET PO SCH (09:12)
[2021-11-07] MEDS: Cyanocobalamin (B-12) 1,000 MCG TABLET PO SCH (09:12)
[2021-11-07] MEDS: Apixaban 5 MG TABLET PO SCH ×2 (09:12→20:59)
[2021-11-07] MEDS: Doxycycline 100 MG CAPSULE PO SCH ×2 (09:12→20:59)
[2021-11-07] MEDS: polyethylene glycoL 3350 17 GM POWD.PACK PO SCH (09:13)
[2021-11-07] MEDS: traZODone 50 MG TABLET PO SCH ×2 (09:13→20:59)
[2021-11-07] MEDS: (Empagliflozin [Jardiance] 25 MG Tablet) PO SCH (09:13)
[2021-11-07] MEDS: *HR* OxyCODONE/APAP 10/325 TABLET PO PRN (09:20)
[2021-11-07] MEDS: Insulin DETEMIR 100 UNIT/ML X5UNITS SUBQ SCH (09:23)
[2021-11-07] MEDS: Insulin LISPRO 300 UNITS/3 ML VIAL SUBQ SCH ×4 (09:24→20:58)
[2021-11-07] MEDS: predniSONE 20 MG TABLET PO SCH (14:41)
[2021-11-07] MEDS: Pregabalin 75 MG CAPSULE PO SCH (20:59)
[2021-11-07] MEDS ORDERED: Insulin DETEMIR 100 UNIT/ML per UNIT SUBQ ONE (21:00)
[2021-11-08 04:59] LABS: Hematocrit 35.9 % (37.5-50.1); Hemoglobin 11.1 g/dL (12.9-16.9); Mean Corpuscular HGB Conc 30.9 g/dL (31.6-35.5); Mean Corpuscular Hemoglobin 26.9 pg (28.0-33.3); Mean Corpuscular Volume 87.1 fL (83.0-100.0); Mean Platelet Volume 11.9 fL (9.4-12.4); Platelet Count 241 K/mcL (140-400); Red Blood Count 4.12 M/mcL (4.19-5.50); Red Cell Distribution Width 16.3 % (11.5-14.5); White Blood Count 12.1 K/mcL (4.3-11.1)
[2021-11-08 05:20] LABS: Alanine Aminotransferase 9 Units/L (7-52); Albumin 3.4 g/dL (3.5-5.7); Albumin/Globulin Ratio 1.2 (1.1-2.2); Alkaline Phosphatase 70 Units/L (34-104); Aspartate Amino Transferase 6 Units/L (13-39); BUN/Creatinine Ratio 38 (6-26); Bilirubin,Total 0.5 mg/dL (0.3-1.0); Blood Urea Nitrogen 24 mg/dL (6-20); Calcium 8.8 mg/dL (8.6-10.3); Carbon Dioxide 32 mEq/L (23-29); Chloride 100 mEq/L (98-107); Globulin 2.9 g/dL (2.4-3.5); Glucose 291 mg/dL (70-105); Magnesium 1.4 mg/dL (1.6-2.6); Osmolality,Calculated 303 (280-300); Potassium 3.9 mEq/L (3.5-5.1); Sodium 139 mEq/L (136-145); Total Protein 6.3 g/dL (6.4-8.9); eGFR For African Americans > 60 (> 60); eGFR For Non-African Americans > 60 (> 60)
[2021-11-08] MEDS: GuaiFENesin/Dextromethorphan TABLET PO SCH ×2 (09:32→21:14)
[2021-11-08] MEDS: Furosemide 40 MG TABLET PO SCH (09:32)
[2021-11-08] MEDS: predniSONE 20 MG TABLET PO SCH (09:32)
[2021-11-08] MEDS: Pregabalin 75 MG CAPSULE PO SCH ×2 (09:32→21:13)
[2021-11-08] MEDS: Doxycycline 100 MG CAPSULE PO SCH ×2 (09:33→21:12)
[2021-11-08] MEDS: Apixaban 5 MG TABLET PO SCH ×2 (09:33→21:12)
[2021-11-08] MEDS: Aspirin 81 MG TAB.CHEW PO SCH (09:33)
[2021-11-08] MEDS: Sennosides 8.6 MG TABLET PO SCH ×2 (09:33→21:10)
[2021-11-08] MEDS: Loratadine 10 MG TABLET PO SCH (09:33)
[2021-11-08] MEDS: *HR* Amiodarone 200 MG TABLET PO SCH (09:33)
[2021-11-08] MEDS: Cyanocobalamin (B-12) 1,000 MCG TABLET PO SCH (09:33)
[2021-11-08] MEDS: (Empagliflozin [Jardiance] 25 MG Tablet) PO SCH (09:34)
[2021-11-08] MEDS: polyethylene glycoL 3350 17 GM POWD.PACK PO SCH (09:34)
[2021-11-08] MEDS: Insulin LISPRO 300 UNITS/3 ML VIAL SUBQ SCH ×4 (09:35→21:10)
[2021-11-08] MEDS: Insulin DETEMIR 100 UNIT/ML X5UNITS SUBQ SCH ×2 (09:36→21:10)
[2021-11-08] MEDS: Magnesium Oxide 400 MG TABLET PO SCH ×2 (09:49→21:14)
[2021-11-08] MEDS: traZODone 50 MG TABLET PO SCH (21:14)
[2021-11-08] MEDS: *HR* OxyCODONE/APAP 10/325 TABLET PO PRN (21:15)
[2021-11-09] MEDS: Racepinephrine Neb 0.5 ML VIAL IH PRN ×3 (00:28→16:35)
[2021-11-09] MEDS: Furosemide 40 MG TABLET PO SCH (09:05)
[2021-11-09] MEDS: Doxycycline 100 MG CAPSULE PO SCH ×2 (09:05→21:12)
[2021-11-09] MEDS: Aspirin 81 MG TAB.CHEW PO SCH (09:05)
[2021-11-09] MEDS: *HR* Amiodarone 200 MG TABLET PO SCH (09:06)
[2021-11-09] MEDS: predniSONE 20 MG TABLET PO SCH (09:06)
[2021-11-09] MEDS: Cyanocobalamin (B-12) 1,000 MCG TABLET PO SCH (09:06)
[2021-11-09] MEDS: Pregabalin 75 MG CAPSULE PO SCH ×2 (09:06→21:14)
[2021-11-09] MEDS: GuaiFENesin/Dextromethorphan TABLET PO SCH ×2 (09:06→21:13)
[2021-11-09] MEDS: Apixaban 5 MG TABLET PO SCH ×2 (09:06→21:14)
[2021-11-09] MEDS: polyethylene glycoL 3350 17 GM POWD.PACK PO SCH (09:07)
[2021-11-09] MEDS: Magnesium Oxide 400 MG TABLET PO SCH ×2 (09:07→21:13)
[2021-11-09] MEDS: Loratadine 10 MG TABLET PO SCH (09:07)
[2021-11-09] MEDS: Insulin DETEMIR 100 UNIT/ML X5UNITS SUBQ SCH (09:07)
[2021-11-09] MEDS: Sennosides 8.6 MG TABLET PO SCH ×2 (09:07→21:14)
[2021-11-09] MEDS: Insulin LISPRO 300 UNITS/3 ML VIAL SUBQ SCH ×4 (09:08→21:26)
[2021-11-09] MEDS: (Empagliflozin [Jardiance] 25 MG Tablet) PO SCH (09:09)
[2021-11-09] MEDS: *HR* OxyCODONE/APAP 10/325 TABLET PO PRN ×2 (09:33→21:24)
[2021-11-09] MEDS: Ipratropium/Albuterol Neb 3 ML IH PRN (20:48)
[2021-11-09] MEDS ORDERED: Insulin DETEMIR 100 UNIT/ML per UNIT SUBQ ONE (21:00)
[2021-11-09] MEDS: traZODone 50 MG TABLET PO SCH (21:13)
[2021-11-10] MEDS: *HR* Amiodarone 200 MG TABLET PO SCH (08:01)
[2021-11-10] MEDS: Magnesium Oxide 400 MG TABLET PO SCH ×2 (08:01→21:10)
[2021-11-10] MEDS: Cyanocobalamin (B-12) 1,000 MCG TABLET PO SCH (08:01)
[2021-11-10] MEDS: Furosemide 40 MG TABLET PO SCH (08:02)
[2021-11-10] MEDS: predniSONE 20 MG TABLET PO SCH (08:02)
[2021-11-10] MEDS: Loratadine 10 MG TABLET PO SCH (08:02)
[2021-11-10] MEDS: GuaiFENesin/Dextromethorphan TABLET PO SCH ×2 (08:02→21:10)
[2021-11-10] MEDS: Aspirin 81 MG TAB.CHEW PO SCH (08:02)
[2021-11-10] MEDS: Insulin LISPRO 300 UNITS/3 ML VIAL SUBQ SCH ×4 (08:03→21:11)
[2021-11-10] MEDS: (Empagliflozin [Jardiance] 25 MG Tablet) PO SCH (08:03)
[2021-11-10] MEDS: Apixaban 5 MG TABLET PO SCH ×2 (08:03→21:10)
[2021-11-10] MEDS: polyethylene glycoL 3350 17 GM POWD.PACK PO SCH (08:03)
[2021-11-10] MEDS: Pregabalin 75 MG CAPSULE PO SCH ×2 (08:03→21:09)
[2021-11-10] MEDS: Sennosides 8.6 MG TABLET PO SCH ×2 (08:03→21:11)
[2021-11-10] MEDS: Insulin DETEMIR 100 UNIT/ML X5UNITS SUBQ SCH ×2 (08:08→21:11)
[2021-11-10] MEDS: Ipratropium/Albuterol Neb 3 ML IH PRN (13:15)
[2021-11-10] MEDS ORDERED: Artificial Tears SOLN 15 ML BOTTLE BOTH EYES PRN (13:17)
[2021-11-10] MEDS ORDERED: Saline Nasal Spray 44 ML BOTTLE NS PRN (13:18)
[2021-11-10] MEDS: traZODone 50 MG TABLET PO SCH (21:09)
[2021-11-10] MEDS: *HR* OxyCODONE/APAP 10/325 TABLET PO PRN (21:09)
[2021-11-10] MEDS: Racepinephrine Neb 0.5 ML VIAL IH PRN (22:42)
[2021-11-11] MEDS: Racepinephrine Neb 0.5 ML VIAL IH PRN (02:18)
[2021-11-11] MEDS: *HR* OxyCODONE/APAP 10/325 TABLET PO PRN ×2 (06:29→17:29)
[2021-11-11] MEDS: Ipratropium/Albuterol Neb 3 ML IH PRN ×2 (07:24→16:44)
[2021-11-11] MEDS: Sennosides 8.6 MG TABLET PO SCH (08:12)
[2021-11-11] MEDS: Furosemide 40 MG TABLET PO SCH (08:13)
[2021-11-11] MEDS: Apixaban 5 MG TABLET PO SCH (08:13)
[2021-11-11] MEDS: Loratadine 10 MG TABLET PO SCH (08:13)
[2021-11-11] MEDS: Magnesium Oxide 400 MG TABLET PO SCH (08:13)
[2021-11-11] MEDS: predniSONE 20 MG TABLET PO SCH (08:13)
[2021-11-11] MEDS: Pregabalin 75 MG CAPSULE PO SCH (08:13)
[2021-11-11] MEDS: Cyanocobalamin (B-12) 1,000 MCG TABLET PO SCH (08:14)
[2021-11-11] MEDS: Aspirin 81 MG TAB.CHEW PO SCH (08:14)
[2021-11-11] MEDS: GuaiFENesin/Dextromethorphan TABLET PO SCH (08:14)
[2021-11-11] MEDS: *HR* Amiodarone 200 MG TABLET PO SCH (08:14)
[2021-11-11] MEDS: (Empagliflozin [Jardiance] 25 MG Tablet) PO SCH (08:16)
[2021-11-11] MEDS: polyethylene glycoL 3350 17 GM POWD.PACK PO SCH (08:16)
[2021-11-11] MEDS: Insulin DETEMIR 100 UNIT/ML X5UNITS SUBQ SCH (08:29)
[2021-11-11] MEDS: Insulin LISPRO 300 UNITS/3 ML VIAL SUBQ SCH ×3 (08:30→17:36)
[2021-11-11 21:22] VITALS: BP 125/76; PULSE 118; RESP 15; TEMP 97.8; O2SAT 97
== END 2021-11-11 19:45 | disposition short-term general hospital (02) | DRG 189 ==
LOC: INPGRE 11-04 18:18
PROVIDERS: ADMIT Family Medicine; ATTEND Family Medicine

== ENCOUNTER 2021-11-18 22:02 | Inpatient (IN) ==
[2021-11-21] MEDS ORDERED: *HR* Dextrose 50 % in Water (Syg) 50 ML SYRINGE IVP PRN (14:17)
[2021-11-21] MEDS ORDERED: Dextrose Gel 15 GM/37.5 ML TUBE PO PRN ×2 (14:17)
[2021-11-21] MEDS ORDERED: D5% in Water 1,000 ML IVC PRN (14:17)
[2021-11-21] MEDS: *HR* OxyCODONE Immed Rel 15 MG TABLET PO PRN ×2 (16:05→22:09)
[2021-11-21] MEDS: Insulin LISPRO 300 UNITS/3 ML VIAL SUBQ SCH ×2 (17:27→22:06)
[2021-11-21] MEDS: Ammonium Lactate 30 APPL/225 GM BOTTLE TP SCH (22:06)
[2021-11-21] MEDS: Pregabalin 75 MG CAPSULE PO SCH (22:08)
[2021-11-21] MEDS: traZODone 50 MG TABLET PO SCH (22:08)
[2021-11-21] MEDS: Apixaban 5 MG TABLET PO SCH (22:08)
[2021-11-21] MEDS: Sennosides 8.6 MG TABLET PO SCH (22:08)
[2021-11-21] MEDS: Ascorbic Acid 500 MG TABLET PO SCH (22:09)
[2021-11-21] MEDS: Nystatin POWDER 30 GM BOTTLE TP SCH ×2 (22:13→22:28)
[2021-11-22 05:22] LABS: Basophils % 0.2 %; Eosinophils # 0.3 K/mcL (0.0-0.6); Eosinophils % 2.1 %; Hematocrit 35.3 % (37.5-50.1); Hemoglobin 11.2 g/dL (12.9-16.9); Immature Granulocytes % 1.4 % (0-4); Lymphocytes # 2.4 K/mcL (0.6-4.6); Lymphocytes % 17.3 %; Mean Corpuscular HGB Conc 31.7 g/dL (31.6-35.5); Mean Corpuscular Hemoglobin 27.9 pg (28.0-33.3); Mean Corpuscular Volume 87.8 fL (83.0-100.0); Mean Platelet Volume 12.4 fL (9.4-12.4); Monocytes # 1.2 K/mcL (0.0-1.3); Monocytes % 8.9 %; Neutrophils # 9.6 K/mcL (1.6-8.9); Platelet Count 298 K/mcL (140-400); Red Blood Count 4.02 M/mcL (4.19-5.50); Red Cell Distribution Width 15.9 % (11.5-14.5); Segmented Neutrophils % 70.1 %; White Blood Count 13.7 K/mcL (4.3-11.1)
[2021-11-22 05:31] LABS: Alanine Aminotransferase 16 Units/L (7-52); Albumin 3.1 g/dL (3.5-5.7); Albumin/Globulin Ratio 1.3 (1.1-2.2); Alkaline Phosphatase 59 Units/L (34-104); Aspartate Amino Transferase 10 Units/L (13-39); BUN/Creatinine Ratio 24 (6-26); Bilirubin,Total 0.4 mg/dL (0.3-1.0); Blood Urea Nitrogen 17 mg/dL (6-20); Calcium 8.3 mg/dL (8.6-10.3); Carbon Dioxide 31 mEq/L (23-29); Chloride 96 mEq/L (98-107); Globulin 2.4 g/dL (2.4-3.5); Glucose 234 mg/dL (70-105); Magnesium 1.7 mg/dL (1.6-2.6); Osmolality,Calculated 285 (280-300); Potassium 4.4 mEq/L (3.5-5.1); Sodium 133 mEq/L (136-145); Total Protein 5.5 g/dL (6.4-8.9); eGFR For African Americans > 60 (> 60); eGFR For Non-African Americans > 60 (> 60)
[2021-11-22] MEDS: *HR* OxyCODONE Immed Rel 15 MG TABLET PO PRN ×2 (05:41→22:24)
[2021-11-22] MEDS: Apixaban 5 MG TABLET PO SCH ×2 (08:55→22:24)
[2021-11-22] MEDS: Multivit/Ca/Min/Fe/FA 1 TAB TABLET PO SCH (08:55)
[2021-11-22] MEDS: Cyanocobalamin (B-12) 1,000 MCG TABLET PO SCH (08:55)
[2021-11-22] MEDS: *HR* Amiodarone 200 MG TABLET PO SCH (08:55)
[2021-11-22] MEDS: Zinc Sulfate 220 MG CAPSULE PO SCH (08:55)
[2021-11-22] MEDS: Aspirin 81 MG TAB.CHEW PO SCH (08:55)
[2021-11-22] MEDS: Sennosides 8.6 MG TABLET PO SCH ×2 (08:55→22:23)
[2021-11-22] MEDS: Pregabalin 75 MG CAPSULE PO SCH ×2 (08:56→22:24)
[2021-11-22] MEDS: Furosemide 40 MG TABLET PO SCH (08:56)
[2021-11-22] MEDS: Insulin LISPRO 300 UNITS/3 ML VIAL SUBQ SCH ×4 (08:56→22:24)
[2021-11-22] MEDS: traZODone 50 MG TABLET PO SCH ×2 (08:56→22:23)
[2021-11-22] MEDS: Ascorbic Acid 500 MG TABLET PO SCH ×2 (08:56→22:23)
[2021-11-22] MEDS: Ammonium Lactate 30 APPL/225 GM BOTTLE TP SCH ×2 (08:57→22:25)
[2021-11-22] MEDS: Nystatin POWDER 30 GM BOTTLE TP SCH ×2 (08:57→22:25)
[2021-11-22] MEDS: Insulin DETEMIR 100 UNIT/ML X5UNITS SUBQ SCH (09:03)
[2021-11-23] MEDS: *HR* OxyCODONE Immed Rel 15 MG TABLET PO PRN (04:38)
[2021-11-23] MEDS: Sennosides 8.6 MG TABLET PO SCH ×2 (08:07→20:32)
[2021-11-23] MEDS: Pregabalin 75 MG CAPSULE PO SCH ×2 (08:07→20:34)
[2021-11-23] MEDS: traZODone 50 MG TABLET PO SCH ×2 (08:07→20:32)
[2021-11-23] MEDS: Multivit/Ca/Min/Fe/FA 1 TAB TABLET PO SCH (08:07)
[2021-11-23] MEDS: Zinc Sulfate 220 MG CAPSULE PO SCH (08:07)
[2021-11-23] MEDS: Furosemide 40 MG TABLET PO SCH ×2 (08:07→17:06)
[2021-11-23] MEDS: Ascorbic Acid 500 MG TABLET PO SCH ×2 (08:07→20:32)
[2021-11-23] MEDS: Apixaban 5 MG TABLET PO SCH ×2 (08:07→20:32)
[2021-11-23] MEDS: *HR* Amiodarone 200 MG TABLET PO SCH (08:07)
[2021-11-23] MEDS: Cyanocobalamin (B-12) 1,000 MCG TABLET PO SCH (08:07)
[2021-11-23] MEDS: Insulin LISPRO 300 UNITS/3 ML VIAL SUBQ SCH ×4 (08:08→20:33)
[2021-11-23] MEDS: Ammonium Lactate 30 APPL/225 GM BOTTLE TP SCH ×2 (08:08→20:33)
[2021-11-23] MEDS: Nystatin POWDER 30 GM BOTTLE TP SCH ×2 (08:08→20:33)
[2021-11-23] MEDS: Aspirin 81 MG TAB.CHEW PO SCH (08:08)
[2021-11-23] MEDS: Insulin DETEMIR 100 UNIT/ML X5UNITS SUBQ SCH (08:19)
[2021-11-23] MEDS: Piperacillin/Tazobactam 3.375 GM in 0.9 % Sodium Chloride Mini Bag 100 ML IVPB SCH ×2 (13:35→20:27)
[2021-11-23] MEDS ORDERED: *HR* OxyCODONE Immed Rel 15 MG TABLET PO PRN (20:10)
[2021-11-24] MEDS: Piperacillin/Tazobactam 3.375 GM in 0.9 % Sodium Chloride Mini Bag 100 ML IVPB SCH ×3 (04:06→21:11)
[2021-11-24] MEDS ORDERED: *HR* OxyCODONE Immed Rel 15 MG TABLET PO PRN (08:17)
[2021-11-24] MEDS: Furosemide 40 MG TABLET PO SCH ×2 (08:18→17:29)
[2021-11-24] MEDS: Insulin LISPRO 300 UNITS/3 ML VIAL SUBQ SCH ×4 (08:33→21:11)
[2021-11-24] MEDS: Insulin DETEMIR 100 UNIT/ML X5UNITS SUBQ SCH (08:33)
[2021-11-24] MEDS: traZODone 50 MG TABLET PO SCH ×2 (08:34→21:10)
[2021-11-24] MEDS: Ammonium Lactate 30 APPL/225 GM BOTTLE TP SCH ×2 (08:34→21:12)
[2021-11-24] MEDS: Ascorbic Acid 500 MG TABLET PO SCH ×2 (08:34→21:10)
[2021-11-24] MEDS: Cyanocobalamin (B-12) 1,000 MCG TABLET PO SCH (08:34)
[2021-11-24] MEDS: Apixaban 5 MG TABLET PO SCH ×2 (08:34→21:10)
[2021-11-24] MEDS: Aspirin 81 MG TAB.CHEW PO SCH (08:35)
[2021-11-24] MEDS: Multivit/Ca/Min/Fe/FA 1 TAB TABLET PO SCH (08:35)
[2021-11-24] MEDS: Sennosides 8.6 MG TABLET PO SCH ×2 (08:35→21:10)
[2021-11-24] MEDS: *HR* Amiodarone 200 MG TABLET PO SCH (08:35)
[2021-11-24] MEDS: Zinc Sulfate 220 MG CAPSULE PO SCH (08:35)
[2021-11-24] MEDS: *HR* OxyCODONE Immed Rel 5 MG TABLET PO PRN ×2 (08:37→21:09)
[2021-11-24] MEDS: Pregabalin 75 MG CAPSULE PO SCH ×2 (09:07→21:10)
[2021-11-24] MEDS: Nystatin POWDER 30 GM BOTTLE TP SCH ×2 (09:09→21:12)
[2021-11-25] MEDS: Piperacillin/Tazobactam 3.375 GM in 0.9 % Sodium Chloride Mini Bag 100 ML IVPB SCH ×3 (04:27→22:18)
[2021-11-25] MEDS: *HR* OxyCODONE Immed Rel 5 MG TABLET PO PRN ×3 (04:32→22:16)
[2021-11-25 06:19] LABS: Hematocrit 28.6 % (37.5-50.1); Hemoglobin 9.1 g/dL (12.9-16.9); Mean Corpuscular HGB Conc 31.8 g/dL (31.6-35.5); Mean Corpuscular Hemoglobin 27.7 pg (28.0-33.3); Mean Corpuscular Volume 86.9 fL (83.0-100.0); Platelet Count 259 K/mcL (140-400); Red Blood Count 3.29 M/mcL (4.19-5.50); Red Cell Distribution Width 15.9 % (11.5-14.5)
[2021-11-25 06:48] LABS: Alanine Aminotransferase 13 Units/L (7-52); Albumin 2.8 g/dL (3.5-5.7); Albumin/Globulin Ratio 1.2 (1.1-2.2); Alkaline Phosphatase 48 Units/L (34-104); Aspartate Amino Transferase 10 Units/L (13-39); BUN/Creatinine Ratio 24 (6-26); Bilirubin,Total 0.3 mg/dL (0.3-1.0); Blood Urea Nitrogen 19 mg/dL (6-20); Carbon Dioxide 30 mEq/L (23-29); Chloride 100 mEq/L (98-107); Globulin 2.3 g/dL (2.4-3.5); Glucose 245 mg/dL (70-105); Magnesium 1.6 mg/dL (1.6-2.6); Osmolality,Calculated 292 (280-300); Potassium 3.5 mEq/L (3.5-5.1); Sodium 136 mEq/L (136-145); Total Protein 5.1 g/dL (6.4-8.9); eGFR For African Americans > 60 (> 60); eGFR For Non-African Americans > 60 (> 60)
[2021-11-25 07:08] LABS: Calcium 7.7 mg/dL (8.6-10.3)
[2021-11-25] MEDS: Insulin LISPRO 300 UNITS/3 ML VIAL SUBQ SCH ×4 (08:10→22:22)
[2021-11-25] MEDS: Insulin DETEMIR 100 UNIT/ML X5UNITS SUBQ SCH (08:11)
[2021-11-25] MEDS: Pregabalin 75 MG CAPSULE PO SCH ×2 (08:12→22:17)
[2021-11-25] MEDS: Apixaban 5 MG TABLET PO SCH ×2 (08:12→22:17)
[2021-11-25] MEDS: Cyanocobalamin (B-12) 1,000 MCG TABLET PO SCH (08:13)
[2021-11-25] MEDS: Aspirin 81 MG TAB.CHEW PO SCH (08:13)
[2021-11-25] MEDS: Ascorbic Acid 500 MG TABLET PO SCH ×2 (08:13→22:17)
[2021-11-25] MEDS: traZODone 50 MG TABLET PO SCH ×2 (08:13→22:17)
[2021-11-25] MEDS: Sennosides 8.6 MG TABLET PO SCH ×2 (08:13→22:17)
[2021-11-25] MEDS: Zinc Sulfate 220 MG CAPSULE PO SCH (08:13)
[2021-11-25] MEDS: *HR* Amiodarone 200 MG TABLET PO SCH (08:13)
[2021-11-25] MEDS: Multivit/Ca/Min/Fe/FA 1 TAB TABLET PO SCH (08:13)
[2021-11-25] MEDS: Ammonium Lactate 30 APPL/225 GM BOTTLE TP SCH ×2 (08:14→22:19)
[2021-11-25] MEDS: Nystatin POWDER 30 GM BOTTLE TP SCH ×2 (08:14→22:18)
[2021-11-25] MEDS: Furosemide 40 MG TABLET PO SCH ×2 (08:19→16:36)
[2021-11-26] MEDS: Piperacillin/Tazobactam 3.375 GM in 0.9 % Sodium Chloride Mini Bag 100 ML IVPB SCH ×3 (04:10→20:58)
[2021-11-26] MEDS: *HR* OxyCODONE Immed Rel 5 MG TABLET PO PRN ×2 (05:38→20:59)
[2021-11-26] MEDS: Insulin LISPRO 300 UNITS/3 ML VIAL SUBQ SCH ×4 (10:16→20:57)
[2021-11-26] MEDS: Pregabalin 75 MG CAPSULE PO SCH ×2 (10:18→20:59)
[2021-11-26] MEDS: Zinc Sulfate 220 MG CAPSULE PO SCH (10:18)
[2021-11-26] MEDS: Aspirin 81 MG TAB.CHEW PO SCH (10:18)
[2021-11-26] MEDS: Multivit/Ca/Min/Fe/FA 1 TAB TABLET PO SCH (10:19)
[2021-11-26] MEDS: traZODone 50 MG TABLET PO SCH ×2 (10:19→20:59)
[2021-11-26] MEDS: Ascorbic Acid 500 MG TABLET PO SCH ×2 (10:19→20:59)
[2021-11-26] MEDS: Furosemide 40 MG TABLET PO SCH (10:19)
[2021-11-26] MEDS: Nystatin POWDER 30 GM BOTTLE TP SCH ×2 (10:20→21:02)
[2021-11-26] MEDS: Sennosides 8.6 MG TABLET PO SCH ×2 (10:20→21:01)
[2021-11-26] MEDS: Apixaban 5 MG TABLET PO SCH ×2 (10:20→20:59)
[2021-11-26] MEDS: *HR* Amiodarone 200 MG TABLET PO SCH (10:20)
[2021-11-26] MEDS: Cyanocobalamin (B-12) 1,000 MCG TABLET PO SCH (10:21)
[2021-11-26] MEDS: Insulin DETEMIR 100 UNIT/ML X5UNITS SUBQ SCH (10:41)
[2021-11-26] MEDS: Furosemide 40 MG/4 ML VIAL IVP SCH (17:23)
[2021-11-27] MEDS: *HR* OxyCODONE Immed Rel 5 MG TABLET PO PRN ×3 (04:23→23:19)
[2021-11-27] MEDS: Piperacillin/Tazobactam 3.375 GM in 0.9 % Sodium Chloride Mini Bag 100 ML IVPB SCH ×3 (04:23→23:18)
[2021-11-27 06:11] LABS: Hematocrit 28.8 % (37.5-50.1); Mean Corpuscular HGB Conc 31.3 g/dL (31.6-35.5); Mean Corpuscular Hemoglobin 27.4 pg (28.0-33.3); Mean Corpuscular Volume 87.8 fL (83.0-100.0); Mean Platelet Volume 11.5 fL (9.4-12.4); Platelet Count 252 K/mcL (140-400); Red Blood Count 3.28 M/mcL (4.19-5.50); White Blood Count 12.4 K/mcL (4.3-11.1)
[2021-11-27 06:26] LABS: Alanine Aminotransferase 13 Units/L (7-52); Albumin/Globulin Ratio 1.2 (1.1-2.2); Alkaline Phosphatase 53 Units/L (34-104); Aspartate Amino Transferase 8 Units/L (13-39); BUN/Creatinine Ratio 22 (6-26); Bilirubin,Total 0.2 mg/dL (0.3-1.0); Blood Urea Nitrogen 20 mg/dL (6-20); Calcium 7.9 mg/dL (8.6-10.3); Carbon Dioxide 31 mEq/L (23-29); Chloride 99 mEq/L (98-107); Globulin 2.5 g/dL (2.4-3.5); Glucose 249 mg/dL (70-105); Magnesium 1.4 mg/dL (1.6-2.6); Osmolality,Calculated 295 (280-300); Potassium 3.6 mEq/L (3.5-5.1); Sodium 137 mEq/L (136-145); Total Protein 5.5 g/dL (6.4-8.9); eGFR For African Americans > 60 (> 60); eGFR For Non-African Americans > 60 (> 60)
[2021-11-27] MEDS: *HR* Amiodarone 200 MG TABLET PO SCH (08:34)
[2021-11-27] MEDS: Cyanocobalamin (B-12) 1,000 MCG TABLET PO SCH (08:34)
[2021-11-27] MEDS: Zinc Sulfate 220 MG CAPSULE PO SCH (08:34)
[2021-11-27] MEDS: Multivit/Ca/Min/Fe/FA 1 TAB TABLET PO SCH (08:34)
[2021-11-27] MEDS: Apixaban 5 MG TABLET PO SCH ×2 (08:35→20:01)
[2021-11-27] MEDS: Sennosides 8.6 MG TABLET PO SCH ×2 (08:35→20:02)
[2021-11-27] MEDS: Pregabalin 75 MG CAPSULE PO SCH ×2 (08:35→20:00)
[2021-11-27] MEDS: traZODone 50 MG TABLET PO SCH ×2 (08:35→20:00)
[2021-11-27] MEDS: Aspirin 81 MG TAB.CHEW PO SCH (08:35)
[2021-11-27] MEDS: Ascorbic Acid 500 MG TABLET PO SCH ×2 (08:36→20:01)
[2021-11-27] MEDS: Insulin LISPRO 300 UNITS/3 ML VIAL SUBQ SCH ×4 (08:36→20:03)
[2021-11-27] MEDS: Furosemide 40 MG/4 ML VIAL IVP SCH ×2 (08:36→17:01)
[2021-11-27] MEDS: Acetaminophen 325 MG TABLET PO PRN (08:48)
[2021-11-27] MEDS: Insulin DETEMIR 100 UNIT/ML X5UNITS SUBQ SCH (09:41)
[2021-11-27] MEDS: Nystatin POWDER 30 GM BOTTLE TP SCH ×2 (09:42→20:02)
[2021-11-28] MEDS: *HR* OxyCODONE Immed Rel 5 MG TABLET PO PRN ×2 (05:47→21:42)
[2021-11-28] MEDS: Ammonium Lactate 30 APPL/225 GM BOTTLE TP SCH (07:29)
[2021-11-28] MEDS: traZODone 50 MG TABLET PO SCH ×2 (08:10→21:42)
[2021-11-28] MEDS: Sennosides 8.6 MG TABLET PO SCH ×2 (08:10→21:58)
[2021-11-28] MEDS: Furosemide 40 MG/4 ML VIAL IVP SCH ×2 (08:11→15:45)
[2021-11-28] MEDS: Piperacillin/Tazobactam 3.375 GM in 0.9 % Sodium Chloride Mini Bag 100 ML IVPB SCH ×2 (08:11→15:45)
[2021-11-28] MEDS: Insulin DETEMIR 100 UNIT/ML X5UNITS SUBQ SCH (08:11)
[2021-11-28] MEDS: Multivit/Ca/Min/Fe/FA 1 TAB TABLET PO SCH (08:12)
[2021-11-28] MEDS: Ascorbic Acid 500 MG TABLET PO SCH ×2 (08:12→21:43)
[2021-11-28] MEDS: Cyanocobalamin (B-12) 1,000 MCG TABLET PO SCH (08:12)
[2021-11-28] MEDS: *HR* Amiodarone 200 MG TABLET PO SCH (08:12)
[2021-11-28] MEDS: Zinc Sulfate 220 MG CAPSULE PO SCH (08:12)
[2021-11-28] MEDS: Insulin LISPRO 300 UNITS/3 ML VIAL SUBQ SCH ×4 (08:12→21:43)
[2021-11-28] MEDS: Pregabalin 75 MG CAPSULE PO SCH ×2 (08:13→21:43)
[2021-11-28] MEDS: Nystatin POWDER 30 GM BOTTLE TP SCH ×2 (08:13→21:44)
[2021-11-28] MEDS: Aspirin 81 MG TAB.CHEW PO SCH (08:13)
[2021-11-28] MEDS: Apixaban 5 MG TABLET PO SCH ×2 (08:13→21:43)
[2021-11-29] MEDS: Piperacillin/Tazobactam 3.375 GM in 0.9 % Sodium Chloride Mini Bag 100 ML IVPB SCH ×3 (00:21→15:57)
[2021-11-29] MEDS: Sennosides 8.6 MG TABLET PO SCH ×2 (08:26→20:03)
[2021-11-29] MEDS: Furosemide 40 MG/4 ML VIAL IVP SCH ×2 (08:27→15:57)
[2021-11-29] MEDS: Insulin DETEMIR 100 UNIT/ML X5UNITS SUBQ SCH (08:28)
[2021-11-29] MEDS: Multivit/Ca/Min/Fe/FA 1 TAB TABLET PO SCH (08:30)
[2021-11-29] MEDS: Apixaban 5 MG TABLET PO SCH ×2 (08:30→20:03)
[2021-11-29] MEDS: Zinc Sulfate 220 MG CAPSULE PO SCH (08:30)
[2021-11-29] MEDS: Insulin LISPRO 300 UNITS/3 ML VIAL SUBQ SCH ×4 (08:30→20:01)
[2021-11-29] MEDS: Nystatin POWDER 30 GM BOTTLE TP SCH ×2 (08:31→20:05)
[2021-11-29] MEDS: Pregabalin 75 MG CAPSULE PO SCH ×2 (08:31→20:02)
[2021-11-29] MEDS: Cyanocobalamin (B-12) 1,000 MCG TABLET PO SCH (08:31)
[2021-11-29] MEDS: Aspirin 81 MG TAB.CHEW PO SCH (08:31)
[2021-11-29] MEDS: traZODone 50 MG TABLET PO SCH ×2 (08:31→20:02)
[2021-11-29] MEDS: Ascorbic Acid 500 MG TABLET PO SCH ×2 (08:31→20:03)
[2021-11-29] MEDS: *HR* Amiodarone 200 MG TABLET PO SCH (08:31)
[2021-11-29] MEDS: *HR* OxyCODONE Immed Rel 5 MG TABLET PO PRN ×2 (08:46→20:03)
[2021-11-30] MEDS: Piperacillin/Tazobactam 3.375 GM in 0.9 % Sodium Chloride Mini Bag 100 ML IVPB SCH ×3 (00:24→15:33)
[2021-11-30] MEDS: *HR* OxyCODONE Immed Rel 5 MG TABLET PO PRN ×3 (02:36→21:39)
[2021-11-30] MEDS: Apixaban 5 MG TABLET PO SCH ×2 (08:46→21:19)
[2021-11-30] MEDS: Multivit/Ca/Min/Fe/FA 1 TAB TABLET PO SCH (08:47)
[2021-11-30] MEDS: Ascorbic Acid 500 MG TABLET PO SCH ×2 (08:47→21:18)
[2021-11-30] MEDS: Aspirin 81 MG TAB.CHEW PO SCH (08:47)
[2021-11-30] MEDS: Zinc Sulfate 220 MG CAPSULE PO SCH (08:47)
[2021-11-30] MEDS: Pregabalin 75 MG CAPSULE PO SCH ×2 (08:47→21:18)
[2021-11-30] MEDS: *HR* Amiodarone 200 MG TABLET PO SCH (08:47)
[2021-11-30] MEDS: Cyanocobalamin (B-12) 1,000 MCG TABLET PO SCH (08:47)
[2021-11-30] MEDS: Insulin DETEMIR 100 UNIT/ML X5UNITS SUBQ SCH (08:48)
[2021-11-30] MEDS: traZODone 50 MG TABLET PO SCH ×2 (08:48→21:18)
[2021-11-30] MEDS: Sennosides 8.6 MG TABLET PO SCH ×2 (08:48→21:19)
[2021-11-30] MEDS: Insulin LISPRO 300 UNITS/3 ML VIAL SUBQ SCH ×4 (08:49→21:17)
[2021-11-30] MEDS: Furosemide 40 MG/4 ML VIAL IVP SCH (08:50)
[2021-11-30] MEDS: Nystatin POWDER 30 GM BOTTLE TP SCH ×2 (09:00→21:21)
[2021-11-30] MEDS: Furosemide 40 MG TABLET PO SCH (17:03)
[2021-12-01] MEDS: Piperacillin/Tazobactam 3.375 GM in 0.9 % Sodium Chloride Mini Bag 100 ML IVPB SCH ×4 (00:15→23:57)
[2021-12-01] MEDS: *HR* OxyCODONE Immed Rel 5 MG TABLET PO PRN (05:03)
[2021-12-01] MEDS: traZODone 50 MG TABLET PO SCH ×2 (10:09→21:10)
[2021-12-01] MEDS: Zinc Sulfate 220 MG CAPSULE PO SCH (10:09)
[2021-12-01] MEDS: Ascorbic Acid 500 MG TABLET PO SCH ×2 (10:09→21:11)
[2021-12-01] MEDS: Cyanocobalamin (B-12) 1,000 MCG TABLET PO SCH (10:09)
[2021-12-01] MEDS: Insulin LISPRO 300 UNITS/3 ML VIAL SUBQ SCH ×4 (10:10→21:13)
[2021-12-01] MEDS: Pregabalin 75 MG CAPSULE PO SCH ×2 (10:10→21:10)
[2021-12-01] MEDS: Furosemide 40 MG TABLET PO SCH ×2 (10:10→17:44)
[2021-12-01] MEDS: Aspirin 81 MG TAB.CHEW PO SCH (10:10)
[2021-12-01] MEDS: Apixaban 5 MG TABLET PO SCH (10:10)
[2021-12-01] MEDS: Cholecalciferol (D-3) 1,000 UNIT (25MCG) TABLET PO SCH (10:10)
[2021-12-01] MEDS: Multivit/Ca/Min/Fe/FA 1 TAB TABLET PO SCH (10:10)
[2021-12-01] MEDS: *HR* Amiodarone 200 MG TABLET PO SCH (10:10)
[2021-12-01] MEDS: Insulin DETEMIR 100 UNIT/ML X5UNITS SUBQ SCH (10:21)
[2021-12-01] MEDS: Nystatin POWDER 30 GM BOTTLE TP SCH ×2 (10:21→21:12)
[2021-12-01] MEDS: Sennosides 8.6 MG TABLET PO SCH ×2 (10:23→21:11)
[2021-12-02] MEDS: Menthol 1 EACH LOZENGE PO PRN (04:11)
[2021-12-02 06:19] LABS: Basophils % 0.3 %; Eosinophils # 0.3 K/mcL (0.0-0.6); Eosinophils % 2.4 %; Hematocrit 31.4 % (37.5-50.1); Hemoglobin 9.8 g/dL (12.9-16.9); Immature Granulocytes % 0.3 % (0-4); Lymphocytes # 1.3 K/mcL (0.6-4.6); Lymphocytes % 12.6 %; Mean Corpuscular HGB Conc 31.2 g/dL (31.6-35.5); Mean Corpuscular Hemoglobin 27.2 pg (28.0-33.3); Mean Corpuscular Volume 87.2 fL (83.0-100.0); Mean Platelet Volume 11.1 fL (9.4-12.4); Monocytes # 0.6 K/mcL (0.0-1.3); Monocytes % 5.9 %; Neutrophils # 8.3 K/mcL (1.6-8.9); Platelet Count 231 K/mcL (140-400); Red Cell Distribution Width 15.8 % (11.5-14.5); Segmented Neutrophils % 78.5 %; White Blood Count 10.5 K/mcL (4.3-11.1)
[2021-12-02 06:54] LABS: Alanine Aminotransferase 12 Units/L (7-52); Albumin 3.3 g/dL (3.5-5.7); Alkaline Phosphatase 42 Units/L (34-104); Aspartate Amino Transferase 8 Units/L (13-39); BUN/Creatinine Ratio 29 (6-26); Bilirubin,Total 0.3 mg/dL (0.3-1.0); Blood Urea Nitrogen 23 mg/dL (6-20); Calcium 9.4 mg/dL (8.6-10.3); Carbon Dioxide 33 mEq/L (23-29); Chloride 98 mEq/L (98-107); Globulin 3.4 g/dL (2.4-3.5); Glucose 230 mg/dL (70-105); Osmolality,Calculated 297 (280-300); Potassium 3.6 mEq/L (3.5-5.1); Sodium 138 mEq/L (136-145); Total Protein 6.7 g/dL (6.4-8.9); eGFR For African Americans > 60 (> 60); eGFR For Non-African Americans > 60 (> 60)
[2021-12-02] MEDS: Multivit/Ca/Min/Fe/FA 1 TAB TABLET PO SCH (09:46)
[2021-12-02] MEDS: Cholecalciferol (D-3) 1,000 UNIT (25MCG) TABLET PO SCH (09:46)
[2021-12-02] MEDS: Zinc Sulfate 220 MG CAPSULE PO SCH (09:46)
[2021-12-02] MEDS: Furosemide 40 MG TABLET PO SCH ×2 (09:47→17:28)
[2021-12-02] MEDS: Cyanocobalamin (B-12) 1,000 MCG TABLET PO SCH (09:47)
[2021-12-02] MEDS: Aspirin 81 MG TAB.CHEW PO SCH (09:47)
[2021-12-02] MEDS: *HR* Amiodarone 200 MG TABLET PO SCH (09:47)
[2021-12-02] MEDS: traZODone 50 MG TABLET PO SCH ×2 (09:47→21:58)
[2021-12-02] MEDS: Sennosides 8.6 MG TABLET PO SCH ×2 (09:47→21:58)
[2021-12-02] MEDS: Nystatin POWDER 30 GM BOTTLE TP SCH ×2 (09:48→21:58)
[2021-12-02] MEDS: Piperacillin/Tazobactam 3.375 GM in 0.9 % Sodium Chloride Mini Bag 100 ML IVPB SCH ×3 (09:48→23:32)
[2021-12-02] MEDS: Pregabalin 75 MG CAPSULE PO SCH ×2 (09:51→21:57)
[2021-12-02] MEDS: Insulin LISPRO 300 UNITS/3 ML VIAL SUBQ SCH ×4 (09:55→21:59)
[2021-12-02] MEDS: Insulin DETEMIR 100 UNIT/ML X5UNITS SUBQ SCH (09:55)
[2021-12-02] MEDS: Ascorbic Acid 500 MG TABLET PO SCH ×2 (09:55→21:58)
[2021-12-02] MEDS ORDERED: Iopamidol - 370 500 ML MLS IVP ONE (12:00)
[2021-12-02 16:07] LABS: Adenovirus Not Detected (Not Detect); Coronavirus 229E Not Detected (Not Detect); Coronavirus HKU1 Not Detected (Not Detect); Coronavirus NL63 Not Detected (Not Detect); Coronavirus OC43 Not Detected (Not Detect)
[2021-12-02 16:08] LABS: Bordetella Pertussis Not Detected (Not Detect); Chlamydophila pneumoniae Not Detected (Not Detect); Human Metapneumovirus Not Detected (Not Detect); Human Rhinovirus/Enterovirus Not Detected (Not Detect); Influenza A Subtype 2009 H1 Not Detected (Not Detect); Influenza B Not Detected (Not Detect); Mycoplasma pneumoniae Not Detected (Not Detect); Parainfluenza Virus 1 Not Detected (Not Detect); Parainfluenza Virus 2 Not Detected (Not Detect); Parainfluenza Virus 3 Not Detected (Not Detect); Parainfluenza Virus 4 Not Detected (Not Detect); Respiratory Syncytial Virus Not Detected (Not Detect); SARS-CoV-2 DETECTED (Not Detect)
[2021-12-02] MEDS: *HR* OxyCODONE Immed Rel 5 MG TABLET PO PRN (17:27)
[2021-12-02] MEDS: Apixaban 5 MG TABLET PO SCH (21:58)
[2021-12-02] MEDS: Acetaminophen 325 MG TABLET PO PRN (22:16)
[2021-12-03 06:24] LABS: Hematocrit 30.9 % (37.5-50.1); Hemoglobin 9.7 g/dL (12.9-16.9); Mean Corpuscular HGB Conc 31.4 g/dL (31.6-35.5); Mean Corpuscular Hemoglobin 27.5 pg (28.0-33.3); Mean Corpuscular Volume 87.5 fL (83.0-100.0); Mean Platelet Volume 10.7 fL (9.4-12.4); Platelet Count 200 K/mcL (140-400); Red Blood Count 3.53 M/mcL (4.19-5.50); Red Cell Distribution Width 15.9 % (11.5-14.5); White Blood Count 8.1 K/mcL (4.3-11.1)
[2021-12-03 06:43] LABS: Alanine Aminotransferase 12 Units/L (7-52); Albumin 3.1 g/dL (3.5-5.7); Alkaline Phosphatase 37 Units/L (34-104); Aspartate Amino Transferase 7 Units/L (13-39); BUN/Creatinine Ratio 37 (6-26); Bilirubin,Total 0.3 mg/dL (0.3-1.0); Blood Urea Nitrogen 22 mg/dL (6-20); Calcium 9.1 mg/dL (8.6-10.3); Carbon Dioxide 33 mEq/L (23-29); Chloride 100 mEq/L (98-107); Globulin 3.1 g/dL (2.4-3.5); Glucose 195 mg/dL (70-105); Magnesium 1.6 mg/dL (1.6-2.6); Osmolality,Calculated 297 (280-300); Potassium 3.4 mEq/L (3.5-5.1); Sodium 139 mEq/L (136-145); Total Protein 6.2 g/dL (6.4-8.9); eGFR For African Americans > 60 (> 60); eGFR For Non-African Americans > 60 (> 60)
[2021-12-03] MEDS: Insulin LISPRO 300 UNITS/3 ML VIAL SUBQ SCH ×4 (09:54→21:28)
[2021-12-03] MEDS: Aspirin 81 MG TAB.CHEW PO SCH (09:55)
[2021-12-03] MEDS: Cyanocobalamin (B-12) 1,000 MCG TABLET PO SCH (09:55)
[2021-12-03] MEDS: traZODone 50 MG TABLET PO SCH ×2 (09:55→21:15)
[2021-12-03] MEDS: Cholecalciferol (D-3) 1,000 UNIT (25MCG) TABLET PO SCH (09:55)
[2021-12-03] MEDS: Multivit/Ca/Min/Fe/FA 1 TAB TABLET PO SCH (09:55)
[2021-12-03] MEDS: *HR* Amiodarone 200 MG TABLET PO SCH (09:56)
[2021-12-03] MEDS: Ascorbic Acid 500 MG TABLET PO SCH ×2 (09:56→21:15)
[2021-12-03] MEDS: Zinc Sulfate 220 MG CAPSULE PO SCH (09:56)
[2021-12-03] MEDS: Acetaminophen 325 MG TABLET PO PRN (09:56)
[2021-12-03] MEDS: Pregabalin 75 MG CAPSULE PO SCH ×2 (09:56→21:15)
[2021-12-03] MEDS: Apixaban 5 MG TABLET PO SCH ×2 (09:56→21:15)
[2021-12-03] MEDS: Furosemide 40 MG TABLET PO SCH ×2 (09:56→16:44)
[2021-12-03] MEDS: Piperacillin/Tazobactam 3.375 GM in 0.9 % Sodium Chloride Mini Bag 100 ML IVPB SCH ×2 (09:57→16:43)
[2021-12-03] MEDS: Sennosides 8.6 MG TABLET PO SCH ×2 (09:58→21:15)
[2021-12-03] MEDS: Insulin DETEMIR 100 UNIT/ML X5UNITS SUBQ SCH (09:58)
[2021-12-03] MEDS: Nystatin POWDER 30 GM BOTTLE TP SCH ×2 (09:58→21:15)
[2021-12-03 10:26] LABS: C-Reactive Protein 37 mg/L (Less than 10)
[2021-12-03] MEDS: Menthol 1 EACH LOZENGE PO PRN (16:42)
[2021-12-03] MEDS: *HR* OxyCODONE Immed Rel 5 MG TABLET PO PRN (16:44)
[2021-12-04] MEDS: Piperacillin/Tazobactam 3.375 GM in 0.9 % Sodium Chloride Mini Bag 100 ML IVPB SCH ×3 (00:16→16:48)
[2021-12-04] MEDS: *HR* OxyCODONE Immed Rel 5 MG TABLET PO PRN ×3 (03:21→16:47)
[2021-12-04] MEDS: Cyanocobalamin (B-12) 1,000 MCG TABLET PO SCH (09:02)
[2021-12-04] MEDS: Aspirin 81 MG TAB.CHEW PO SCH (09:02)
[2021-12-04] MEDS: Cholecalciferol (D-3) 1,000 UNIT (25MCG) TABLET PO SCH (09:03)
[2021-12-04] MEDS: Multivit/Ca/Min/Fe/FA 1 TAB TABLET PO SCH (09:03)
[2021-12-04] MEDS: Zinc Sulfate 220 MG CAPSULE PO SCH (09:03)
[2021-12-04] MEDS: Pregabalin 75 MG CAPSULE PO SCH ×2 (09:03→22:05)
[2021-12-04] MEDS: Sennosides 8.6 MG TABLET PO SCH ×2 (09:03→22:05)
[2021-12-04] MEDS: Furosemide 40 MG TABLET PO SCH ×2 (09:04→16:50)
[2021-12-04] MEDS: Apixaban 5 MG TABLET PO SCH ×2 (09:04→22:04)
[2021-12-04] MEDS: traZODone 50 MG TABLET PO SCH ×2 (09:04→22:04)
[2021-12-04] MEDS: *HR* Amiodarone 200 MG TABLET PO SCH (09:04)
[2021-12-04] MEDS: Insulin DETEMIR 100 UNIT/ML X5UNITS SUBQ SCH (09:04)
[2021-12-04] MEDS: Ascorbic Acid 500 MG TABLET PO SCH ×2 (09:04→22:05)
[2021-12-04] MEDS: Insulin LISPRO 300 UNITS/3 ML VIAL SUBQ SCH ×4 (09:05→22:07)
[2021-12-04] MEDS: Nystatin POWDER 30 GM BOTTLE TP SCH ×2 (09:06→22:04)
[2021-12-04] MEDS: Acetaminophen 325 MG TABLET PO PRN (16:47)
[2021-12-04 19:35] LABS: Bilirubin,Urine Negative (Negative); Blood,Urine Negative (Negative); Clarity,Urine Slightly Cloudy (Clear); Color,Urine Yellow (Yellow); Glucose,Urine (UA) Normal (Normal); Ketones,Urine 15 mg/dL (Negative); Leukocyte Esterase,Urine Negative (Negative); Nitrite,Urine Negative (Negative); Protein,Urine Negative (Neg-Trace); Urobilinogen,Urine Normal (Normal)
[2021-12-05] MEDS: Menthol 1 EACH LOZENGE PO PRN ×2 (00:52→08:04)
[2021-12-05] MEDS: *HR* OxyCODONE Immed Rel 5 MG TABLET PO PRN ×3 (00:53→16:01)
[2021-12-05] MEDS: Piperacillin/Tazobactam 3.375 GM in 0.9 % Sodium Chloride Mini Bag 100 ML IVPB SCH ×3 (00:54→16:02)
[2021-12-05] MEDS: Cyanocobalamin (B-12) 1,000 MCG TABLET PO SCH (08:04)
[2021-12-05] MEDS: Multivit/Ca/Min/Fe/FA 1 TAB TABLET PO SCH (08:04)
[2021-12-05] MEDS: traZODone 50 MG TABLET PO SCH ×2 (08:04→20:47)
[2021-12-05] MEDS: Insulin DETEMIR 100 UNIT/ML X5UNITS SUBQ SCH (08:04)
[2021-12-05] MEDS: Sennosides 8.6 MG TABLET PO SCH ×2 (08:04→20:48)
[2021-12-05] MEDS: Cholecalciferol (D-3) 1,000 UNIT (25MCG) TABLET PO SCH (08:04)
[2021-12-05] MEDS: Zinc Sulfate 220 MG CAPSULE PO SCH (08:05)
[2021-12-05] MEDS: Ascorbic Acid 500 MG TABLET PO SCH ×2 (08:05→20:48)
[2021-12-05] MEDS: Pregabalin 75 MG CAPSULE PO SCH ×2 (08:05→20:47)
[2021-12-05] MEDS: Furosemide 40 MG TABLET PO SCH ×2 (08:05→16:01)
[2021-12-05] MEDS: Apixaban 5 MG TABLET PO SCH ×2 (08:05→20:48)
[2021-12-05] MEDS: Aspirin 81 MG TAB.CHEW PO SCH (08:05)
[2021-12-05] MEDS: Insulin LISPRO 300 UNITS/3 ML VIAL SUBQ SCH ×4 (08:06→20:47)
[2021-12-05] MEDS: Nystatin POWDER 30 GM BOTTLE TP SCH ×2 (08:07→20:48)
[2021-12-05] MEDS: *HR* Amiodarone 200 MG TABLET PO SCH (08:07)
[2021-12-06] MEDS: Piperacillin/Tazobactam 3.375 GM in 0.9 % Sodium Chloride Mini Bag 100 ML IVPB SCH ×3 (00:32→16:47)
[2021-12-06 05:29] LABS: Hematocrit 31.3 % (37.5-50.1); Hemoglobin 9.6 g/dL (12.9-16.9); Mean Corpuscular HGB Conc 30.7 g/dL (31.6-35.5); Mean Corpuscular Hemoglobin 27.1 pg (28.0-33.3); Mean Corpuscular Volume 88.4 fL (83.0-100.0); Mean Platelet Volume 11.3 fL (9.4-12.4); Platelet Count 243 K/mcL (140-400); Red Blood Count 3.54 M/mcL (4.19-5.50); Red Cell Distribution Width 16.2 % (11.5-14.5); White Blood Count 10.1 K/mcL (4.3-11.1)
[2021-12-06 05:51] LABS: Alanine Aminotransferase 10 Units/L (7-52); Albumin 3.3 g/dL (3.5-5.7); Albumin/Globulin Ratio 1.1 (1.1-2.2); Alkaline Phosphatase 46 Units/L (34-104); Aspartate Amino Transferase 8 Units/L (13-39); BUN/Creatinine Ratio 38 (6-26); Bilirubin,Total 0.3 mg/dL (0.3-1.0); Blood Urea Nitrogen 24 mg/dL (6-20); Calcium 8.4 mg/dL (8.6-10.3); Carbon Dioxide 32 mEq/L (23-29); Chloride 101 mEq/L (98-107); Globulin 3.1 g/dL (2.4-3.5); Glucose 231 mg/dL (70-105); Magnesium 1.5 mg/dL (1.6-2.6); Osmolality,Calculated 299 (280-300); Potassium 3.8 mEq/L (3.5-5.1); Sodium 139 mEq/L (136-145); Total Protein 6.4 g/dL (6.4-8.9); eGFR For African Americans > 60 (> 60); eGFR For Non-African Americans > 60 (> 60)
[2021-12-06] MEDS: Sennosides 8.6 MG TABLET PO SCH ×2 (09:19→20:56)
[2021-12-06] MEDS: Zinc Sulfate 220 MG CAPSULE PO SCH (09:19)
[2021-12-06] MEDS: Insulin DETEMIR 100 UNIT/ML X5UNITS SUBQ SCH (09:19)
[2021-12-06] MEDS: Cyanocobalamin (B-12) 1,000 MCG TABLET PO SCH (09:20)
[2021-12-06] MEDS: Pregabalin 75 MG CAPSULE PO SCH ×2 (09:20→20:56)
[2021-12-06] MEDS: traZODone 50 MG TABLET PO SCH ×2 (09:20→20:57)
[2021-12-06] MEDS: *HR* OxyCODONE Immed Rel 5 MG TABLET PO PRN ×2 (09:20→21:18)
[2021-12-06] MEDS: Apixaban 5 MG TABLET PO SCH ×2 (09:20→20:57)
[2021-12-06] MEDS: Ascorbic Acid 500 MG TABLET PO SCH ×2 (09:20→20:57)
[2021-12-06] MEDS: Cholecalciferol (D-3) 1,000 UNIT (25MCG) TABLET PO SCH (09:20)
[2021-12-06] MEDS: Multivit/Ca/Min/Fe/FA 1 TAB TABLET PO SCH (09:20)
[2021-12-06] MEDS: Aspirin 81 MG TAB.CHEW PO SCH (09:20)
[2021-12-06] MEDS: Furosemide 40 MG TABLET PO SCH ×2 (09:20→16:47)
[2021-12-06] MEDS: Insulin LISPRO 300 UNITS/3 ML VIAL SUBQ SCH ×4 (09:21→21:03)
[2021-12-06] MEDS: *HR* Amiodarone 200 MG TABLET PO SCH (09:21)
[2021-12-06] MEDS: Nystatin POWDER 30 GM BOTTLE TP SCH ×2 (09:22→21:17)
[2021-12-07] MEDS: Piperacillin/Tazobactam 3.375 GM in 0.9 % Sodium Chloride Mini Bag 100 ML IVPB SCH ×3 (00:36→16:23)
[2021-12-07] MEDS: Insulin LISPRO 300 UNITS/3 ML VIAL SUBQ SCH ×4 (08:32→20:56)
[2021-12-07] MEDS: Insulin DETEMIR 100 UNIT/ML X5UNITS SUBQ SCH (08:33)
[2021-12-07] MEDS: *HR* Amiodarone 200 MG TABLET PO SCH (08:38)
[2021-12-07] MEDS: Cholecalciferol (D-3) 1,000 UNIT (25MCG) TABLET PO SCH (08:38)
[2021-12-07] MEDS: Cyanocobalamin (B-12) 1,000 MCG TABLET PO SCH (08:39)
[2021-12-07] MEDS: Sennosides 8.6 MG TABLET PO SCH ×2 (08:39→20:52)
[2021-12-07] MEDS: Zinc Sulfate 220 MG CAPSULE PO SCH (08:39)
[2021-12-07] MEDS: Multivit/Ca/Min/Fe/FA 1 TAB TABLET PO SCH (08:39)
[2021-12-07] MEDS: Pregabalin 75 MG CAPSULE PO SCH ×2 (08:39→20:51)
[2021-12-07] MEDS: Aspirin 81 MG TAB.CHEW PO SCH (08:39)
[2021-12-07] MEDS: Ascorbic Acid 500 MG TABLET PO SCH ×2 (08:39→20:52)
[2021-12-07] MEDS: Apixaban 5 MG TABLET PO SCH ×2 (08:40→20:52)
[2021-12-07] MEDS: traZODone 50 MG TABLET PO SCH ×2 (08:40→20:52)
[2021-12-07] MEDS: Furosemide 40 MG TABLET PO SCH ×2 (08:40→16:23)
[2021-12-07] MEDS: *HR* OxyCODONE Immed Rel 5 MG TABLET PO PRN ×2 (08:41→16:26)
[2021-12-07] MEDS: Nystatin POWDER 30 GM BOTTLE TP SCH ×2 (08:41→20:52)
[2021-12-07] MEDS: polyethylene glycoL 3350 17 GM POWD.PACK PO PRN (11:51)
[2021-12-08] MEDS: Piperacillin/Tazobactam 3.375 GM in 0.9 % Sodium Chloride Mini Bag 100 ML IVPB SCH ×3 (00:38→17:21)
[2021-12-08] MEDS: Menthol 1 EACH LOZENGE PO PRN (00:39)
[2021-12-08 05:35] LABS: Hematocrit 33.9 % (37.5-50.1); Hemoglobin 10.3 g/dL (12.9-16.9); Mean Corpuscular HGB Conc 30.4 g/dL (31.6-35.5); Mean Corpuscular Hemoglobin 26.8 pg (28.0-33.3); Mean Corpuscular Volume 88.1 fL (83.0-100.0); Mean Platelet Volume 11.3 fL (9.4-12.4); Platelet Count 278 K/mcL (140-400); Red Blood Count 3.85 M/mcL (4.19-5.50); Red Cell Distribution Width 16.4 % (11.5-14.5)
[2021-12-08 05:51] LABS: Alanine Aminotransferase 11 Units/L (7-52); Albumin 3.3 g/dL (3.5-5.7); Alkaline Phosphatase 45 Units/L (34-104); Aspartate Amino Transferase 8 Units/L (13-39); BUN/Creatinine Ratio 26 (6-26); Bilirubin,Total 0.3 mg/dL (0.3-1.0); Blood Urea Nitrogen 22 mg/dL (6-20); Calcium 8.6 mg/dL (8.6-10.3); Carbon Dioxide 33 mEq/L (23-29); Chloride 99 mEq/L (98-107); Globulin 3.3 g/dL (2.4-3.5); Glucose 228 mg/dL (70-105); Magnesium 1.4 mg/dL (1.6-2.6); Osmolality,Calculated 301 (280-300); Potassium 3.8 mEq/L (3.5-5.1); Sodium 140 mEq/L (136-145); Total Protein 6.6 g/dL (6.4-8.9); eGFR For African Americans > 60 (> 60); eGFR For Non-African Americans > 60 (> 60)
[2021-12-08] MEDS: Insulin DETEMIR 100 UNIT/ML X5UNITS SUBQ SCH (08:41)
[2021-12-08] MEDS: Cholecalciferol (D-3) 1,000 UNIT (25MCG) TABLET PO SCH (08:42)
[2021-12-08] MEDS: Apixaban 5 MG TABLET PO SCH ×2 (08:42→21:23)
[2021-12-08] MEDS: traZODone 50 MG TABLET PO SCH ×2 (08:42→21:23)
[2021-12-08] MEDS: Furosemide 40 MG TABLET PO SCH ×2 (08:43→17:21)
[2021-12-08] MEDS: Sennosides 8.6 MG TABLET PO SCH ×2 (08:43→21:25)
[2021-12-08] MEDS: *HR* Amiodarone 200 MG TABLET PO SCH (08:43)
[2021-12-08] MEDS: Pregabalin 75 MG CAPSULE PO SCH ×2 (08:43→21:25)
[2021-12-08] MEDS: Aspirin 81 MG TAB.CHEW PO SCH (08:43)
[2021-12-08] MEDS: Multivit/Ca/Min/Fe/FA 1 TAB TABLET PO SCH (08:43)
[2021-12-08] MEDS: Zinc Sulfate 220 MG CAPSULE PO SCH (08:43)
[2021-12-08] MEDS: Cyanocobalamin (B-12) 1,000 MCG TABLET PO SCH (08:43)
[2021-12-08] MEDS: Ascorbic Acid 500 MG TABLET PO SCH ×2 (08:43→21:25)
[2021-12-08] MEDS: *HR* OxyCODONE Immed Rel 5 MG TABLET PO PRN ×2 (08:45→17:21)
[2021-12-08] MEDS: Insulin LISPRO 300 UNITS/3 ML VIAL SUBQ SCH ×4 (08:45→21:22)
[2021-12-08] MEDS: Nystatin POWDER 30 GM BOTTLE TP SCH ×2 (08:46→21:39)
[2021-12-08 09:39] LABS: C-Reactive Protein 47 mg/L (Less than 10)
[2021-12-08 09:49] LABS: Ferritin 202 ng/mL (20-250)
[2021-12-08] MEDS: Magnesium Oxide 400 MG TABLET PO SCH ×2 (12:36→21:24)
[2021-12-08] MEDS: polyethylene glycoL 3350 17 GM POWD.PACK PO PRN (17:21)
[2021-12-09] MEDS: Piperacillin/Tazobactam 3.375 GM in 0.9 % Sodium Chloride Mini Bag 100 ML IVPB SCH ×4 (00:05→23:39)
[2021-12-09] MEDS: Insulin DETEMIR 100 UNIT/ML X5UNITS SUBQ SCH (08:44)
[2021-12-09] MEDS: Insulin LISPRO 300 UNITS/3 ML VIAL SUBQ SCH ×4 (08:45→21:26)
[2021-12-09] MEDS: Cyanocobalamin (B-12) 1,000 MCG TABLET PO SCH (08:47)
[2021-12-09] MEDS: Furosemide 40 MG TABLET PO SCH ×2 (08:47→15:41)
[2021-12-09] MEDS: Cholecalciferol (D-3) 1,000 UNIT (25MCG) TABLET PO SCH (08:47)
[2021-12-09] MEDS: Apixaban 5 MG TABLET PO SCH ×2 (08:47→21:27)
[2021-12-09] MEDS: Zinc Sulfate 220 MG CAPSULE PO SCH (08:47)
[2021-12-09] MEDS: Multivit/Ca/Min/Fe/FA 1 TAB TABLET PO SCH (08:47)
[2021-12-09] MEDS: Sennosides 8.6 MG TABLET PO SCH ×2 (08:47→21:27)
[2021-12-09] MEDS: Magnesium Oxide 400 MG TABLET PO SCH ×2 (08:47→21:27)
[2021-12-09] MEDS: Nystatin POWDER 30 GM BOTTLE TP SCH ×2 (08:48→21:29)
[2021-12-09] MEDS: Pregabalin 75 MG CAPSULE PO SCH ×2 (08:48→21:26)
[2021-12-09] MEDS: Aspirin 81 MG TAB.CHEW PO SCH (08:48)
[2021-12-09] MEDS: *HR* Amiodarone 200 MG TABLET PO SCH (08:48)
[2021-12-09] MEDS: Ascorbic Acid 500 MG TABLET PO SCH ×2 (08:48→21:27)
[2021-12-09] MEDS: traZODone 50 MG TABLET PO SCH ×2 (08:48→21:27)
[2021-12-09] MEDS: *HR* OxyCODONE Immed Rel 5 MG TABLET PO PRN (21:28)
[2021-12-10] MEDS: Menthol 1 EACH LOZENGE PO PRN (04:05)
[2021-12-10] MEDS: Sennosides 8.6 MG TABLET PO SCH ×2 (08:18→20:19)
[2021-12-10] MEDS: traZODone 50 MG TABLET PO SCH ×2 (08:18→20:19)
[2021-12-10] MEDS: Furosemide 40 MG TABLET PO SCH ×2 (08:18→16:22)
[2021-12-10] MEDS: Aspirin 81 MG TAB.CHEW PO SCH (08:18)
[2021-12-10] MEDS: Pregabalin 75 MG CAPSULE PO SCH ×2 (08:18→20:19)
[2021-12-10] MEDS: Magnesium Oxide 400 MG TABLET PO SCH ×2 (08:18→20:19)
[2021-12-10] MEDS: Apixaban 5 MG TABLET PO SCH ×2 (08:18→20:18)
[2021-12-10] MEDS: Cyanocobalamin (B-12) 1,000 MCG TABLET PO SCH (08:18)
[2021-12-10] MEDS: Multivit/Ca/Min/Fe/FA 1 TAB TABLET PO SCH (08:19)
[2021-12-10] MEDS: *HR* Amiodarone 200 MG TABLET PO SCH (08:19)
[2021-12-10] MEDS: Insulin DETEMIR 100 UNIT/ML X5UNITS SUBQ SCH (08:19)
[2021-12-10] MEDS: Cholecalciferol (D-3) 1,000 UNIT (25MCG) TABLET PO SCH (08:19)
[2021-12-10] MEDS: Piperacillin/Tazobactam 3.375 GM in 0.9 % Sodium Chloride Mini Bag 100 ML IVPB SCH ×2 (08:20→16:22)
[2021-12-10] MEDS: Insulin LISPRO 300 UNITS/3 ML VIAL SUBQ SCH ×4 (08:21→20:19)
[2021-12-10] MEDS: Nystatin POWDER 30 GM BOTTLE TP SCH ×2 (08:22→20:19)
[2021-12-10] MEDS: Ascorbic Acid 500 MG TABLET PO SCH ×2 (08:30→20:19)
[2021-12-10] MEDS: Zinc Sulfate 220 MG CAPSULE PO SCH (08:30)
[2021-12-10] MEDS: *HR* OxyCODONE Immed Rel 5 MG TABLET PO PRN (20:39)
[2021-12-11] MEDS: Piperacillin/Tazobactam 3.375 GM in 0.9 % Sodium Chloride Mini Bag 100 ML IVPB SCH ×4 (01:07→23:03)
[2021-12-11] MEDS: *HR* OxyCODONE Immed Rel 5 MG TABLET PO PRN ×2 (05:02→23:10)
[2021-12-11] MEDS: Magnesium Oxide 400 MG TABLET PO SCH ×2 (09:58→23:04)
[2021-12-11] MEDS: Zinc Sulfate 220 MG CAPSULE PO SCH (09:58)
[2021-12-11] MEDS: Pregabalin 75 MG CAPSULE PO SCH ×2 (09:58→23:04)
[2021-12-11] MEDS: Ascorbic Acid 500 MG TABLET PO SCH ×2 (09:58→23:04)
[2021-12-11] MEDS: Cholecalciferol (D-3) 1,000 UNIT (25MCG) TABLET PO SCH (09:58)
[2021-12-11] MEDS: Sennosides 8.6 MG TABLET PO SCH ×2 (09:58→23:04)
[2021-12-11] MEDS: Cyanocobalamin (B-12) 1,000 MCG TABLET PO SCH (09:59)
[2021-12-11] MEDS: Multivit/Ca/Min/Fe/FA 1 TAB TABLET PO SCH (09:59)
[2021-12-11] MEDS: Furosemide 40 MG TABLET PO SCH ×2 (09:59→17:22)
[2021-12-11] MEDS: Apixaban 5 MG TABLET PO SCH ×2 (09:59→23:04)
[2021-12-11] MEDS: Aspirin 81 MG TAB.CHEW PO SCH (09:59)
[2021-12-11] MEDS: *HR* Amiodarone 200 MG TABLET PO SCH (09:59)
[2021-12-11] MEDS: Insulin LISPRO 300 UNITS/3 ML VIAL SUBQ SCH ×4 (10:00→23:03)
[2021-12-11] MEDS: Insulin DETEMIR 100 UNIT/ML X5UNITS SUBQ SCH (10:00)
[2021-12-11] MEDS: Nystatin POWDER 30 GM BOTTLE TP SCH ×2 (10:04→23:05)
[2021-12-11] MEDS: traZODone 50 MG TABLET PO SCH ×2 (10:09→23:04)
[2021-12-12] MEDS: Acetaminophen 325 MG TABLET PO PRN (04:57)
[2021-12-12] MEDS: Cholecalciferol (D-3) 1,000 UNIT (25MCG) TABLET PO SCH (09:13)
[2021-12-12] MEDS: Cyanocobalamin (B-12) 1,000 MCG TABLET PO SCH (09:14)
[2021-12-12] MEDS: Ascorbic Acid 500 MG TABLET PO SCH ×2 (09:14→21:59)
[2021-12-12] MEDS: Pregabalin 75 MG CAPSULE PO SCH ×2 (09:14→21:52)
[2021-12-12] MEDS: Zinc Sulfate 220 MG CAPSULE PO SCH (09:14)
[2021-12-12] MEDS: Furosemide 40 MG TABLET PO SCH ×2 (09:14→18:54)
[2021-12-12] MEDS: Multivit/Ca/Min/Fe/FA 1 TAB TABLET PO SCH (09:14)
[2021-12-12] MEDS: Aspirin 81 MG TAB.CHEW PO SCH (09:14)
[2021-12-12] MEDS: Sennosides 8.6 MG TABLET PO SCH ×2 (09:14→21:53)
[2021-12-12] MEDS: *HR* Amiodarone 200 MG TABLET PO SCH (09:14)
[2021-12-12] MEDS: Apixaban 5 MG TABLET PO SCH ×2 (09:15→21:53)
[2021-12-12] MEDS: Magnesium Oxide 400 MG TABLET PO SCH ×2 (09:15→21:54)
[2021-12-12] MEDS: Insulin LISPRO 300 UNITS/3 ML VIAL SUBQ SCH ×4 (09:15→21:57)
[2021-12-12] MEDS: Insulin DETEMIR 100 UNIT/ML X5UNITS SUBQ SCH (09:16)
[2021-12-12] MEDS: Nystatin POWDER 30 GM BOTTLE TP SCH ×2 (09:16→21:57)
[2021-12-12] MEDS: traZODone 50 MG TABLET PO SCH (21:53)
[2021-12-12] MEDS: *HR* OxyCODONE Immed Rel 5 MG TABLET PO PRN (21:53)
[2021-12-13] MEDS: *HR* OxyCODONE Immed Rel 5 MG TABLET PO PRN ×2 (05:49→19:57)
[2021-12-13] MEDS: Ascorbic Acid 500 MG TABLET PO SCH ×2 (08:20→19:51)
[2021-12-13] MEDS: *HR* Amiodarone 200 MG TABLET PO SCH (08:20)
[2021-12-13] MEDS: Multivit/Ca/Min/Fe/FA 1 TAB TABLET PO SCH (08:20)
[2021-12-13] MEDS: Magnesium Oxide 400 MG TABLET PO SCH ×2 (08:20→19:51)
[2021-12-13] MEDS: Zinc Sulfate 220 MG CAPSULE PO SCH (08:21)
[2021-12-13] MEDS: Aspirin 81 MG TAB.CHEW PO SCH (08:21)
[2021-12-13] MEDS: Cholecalciferol (D-3) 1,000 UNIT (25MCG) TABLET PO SCH (08:21)
[2021-12-13] MEDS: Sennosides 8.6 MG TABLET PO SCH ×2 (08:21→19:51)
[2021-12-13] MEDS: Pregabalin 75 MG CAPSULE PO SCH ×2 (08:21→19:52)
[2021-12-13] MEDS: Apixaban 5 MG TABLET PO SCH ×2 (08:21→19:51)
[2021-12-13] MEDS: Insulin DETEMIR 100 UNIT/ML X5UNITS SUBQ SCH (08:22)
[2021-12-13] MEDS: Furosemide 40 MG TABLET PO SCH ×2 (08:22→16:33)
[2021-12-13] MEDS: Insulin LISPRO 300 UNITS/3 ML VIAL SUBQ SCH ×4 (08:22→19:52)
[2021-12-13] MEDS: Cyanocobalamin (B-12) 1,000 MCG TABLET PO SCH (08:22)
[2021-12-13] MEDS: Nystatin POWDER 30 GM BOTTLE TP SCH ×2 (08:23→19:51)
[2021-12-13] MEDS: Piperacillin/Tazobactam 3.375 GM in 0.9 % Sodium Chloride Mini Bag 100 ML IVPB SCH ×2 (16:32→23:39)
[2021-12-13] MEDS: traZODone 50 MG TABLET PO SCH (19:51)
[2021-12-14] MEDS: *HR* OxyCODONE Immed Rel 5 MG TABLET PO PRN (06:53)
[2021-12-14] MEDS: Aspirin 81 MG TAB.CHEW PO SCH (08:05)
[2021-12-14] MEDS: Magnesium Oxide 400 MG TABLET PO SCH ×2 (08:05→20:34)
[2021-12-14] MEDS: Pregabalin 75 MG CAPSULE PO SCH ×2 (08:05→20:33)
[2021-12-14] MEDS: Apixaban 5 MG TABLET PO SCH ×2 (08:05→20:34)
[2021-12-14] MEDS: *HR* Amiodarone 200 MG TABLET PO SCH (08:05)
[2021-12-14] MEDS: Multivit/Ca/Min/Fe/FA 1 TAB TABLET PO SCH (08:05)
[2021-12-14] MEDS: Cyanocobalamin (B-12) 1,000 MCG TABLET PO SCH (08:06)
[2021-12-14] MEDS: Furosemide 40 MG TABLET PO SCH ×2 (08:06→16:48)
[2021-12-14] MEDS: Sennosides 8.6 MG TABLET PO SCH ×2 (08:06→20:34)
[2021-12-14] MEDS: Cholecalciferol (D-3) 1,000 UNIT (25MCG) TABLET PO SCH (08:06)
[2021-12-14] MEDS: Zinc Sulfate 220 MG CAPSULE PO SCH (08:06)
[2021-12-14] MEDS: Ascorbic Acid 500 MG TABLET PO SCH ×2 (08:06→20:33)
[2021-12-14] MEDS: Piperacillin/Tazobactam 3.375 GM in 0.9 % Sodium Chloride Mini Bag 100 ML IVPB SCH ×3 (08:07→23:42)
[2021-12-14] MEDS: Insulin DETEMIR 100 UNIT/ML X5UNITS SUBQ SCH (08:08)
[2021-12-14] MEDS: Nystatin POWDER 30 GM BOTTLE TP SCH ×2 (08:08→22:41)
[2021-12-14] MEDS: Insulin LISPRO 300 UNITS/3 ML VIAL SUBQ SCH ×4 (08:08→20:37)
[2021-12-14] MEDS: traZODone 50 MG TABLET PO SCH (20:33)
[2021-12-15] MEDS: Sennosides 8.6 MG TABLET PO SCH ×2 (08:16→20:52)
[2021-12-15] MEDS: Piperacillin/Tazobactam 3.375 GM in 0.9 % Sodium Chloride Mini Bag 100 ML IVPB SCH ×2 (08:17→16:36)
[2021-12-15] MEDS: Apixaban 5 MG TABLET PO SCH ×2 (08:18→20:53)
[2021-12-15] MEDS: Zinc Sulfate 220 MG CAPSULE PO SCH (08:18)
[2021-12-15] MEDS: Cyanocobalamin (B-12) 1,000 MCG TABLET PO SCH (08:18)
[2021-12-15] MEDS: Cholecalciferol (D-3) 1,000 UNIT (25MCG) TABLET PO SCH (08:18)
[2021-12-15] MEDS: *HR* OxyCODONE Immed Rel 5 MG TABLET PO PRN ×2 (08:18→21:04)
[2021-12-15] MEDS: Multivit/Ca/Min/Fe/FA 1 TAB TABLET PO SCH (08:18)
[2021-12-15] MEDS: *HR* Amiodarone 200 MG TABLET PO SCH (08:19)
[2021-12-15] MEDS: Pregabalin 75 MG CAPSULE PO SCH ×2 (08:19→20:53)
[2021-12-15] MEDS: Magnesium Oxide 400 MG TABLET PO SCH ×2 (08:19→20:53)
[2021-12-15] MEDS: Aspirin 81 MG TAB.CHEW PO SCH (08:19)
[2021-12-15] MEDS: Ascorbic Acid 500 MG TABLET PO SCH ×2 (08:19→20:53)
[2021-12-15] MEDS: Furosemide 40 MG TABLET PO SCH ×2 (08:19→16:36)
[2021-12-15] MEDS: Insulin LISPRO 300 UNITS/3 ML VIAL SUBQ SCH ×4 (08:19→20:54)
[2021-12-15] MEDS: Nystatin POWDER 30 GM BOTTLE TP SCH ×2 (08:20→21:04)
[2021-12-15] MEDS: Insulin DETEMIR 100 UNIT/ML X5UNITS SUBQ SCH (08:28)
[2021-12-15] MEDS: cephALEXin 500 MG CAPSULE PO SCH (17:06)
[2021-12-15] MEDS: traZODone 50 MG TABLET PO SCH (20:52)
[2021-12-16] MEDS: Magnesium Oxide 400 MG TABLET PO SCH ×2 (08:57→21:49)
[2021-12-16] MEDS: Cholecalciferol (D-3) 1,000 UNIT (25MCG) TABLET PO SCH (08:57)
[2021-12-16] MEDS: Pregabalin 75 MG CAPSULE PO SCH ×2 (08:57→21:46)
[2021-12-16] MEDS: Apixaban 5 MG TABLET PO SCH ×2 (08:58→21:49)
[2021-12-16] MEDS: Multivit/Ca/Min/Fe/FA 1 TAB TABLET PO SCH (08:58)
[2021-12-16] MEDS: Sennosides 8.6 MG TABLET PO SCH ×2 (08:58→21:48)
[2021-12-16] MEDS: Furosemide 40 MG TABLET PO SCH ×2 (08:58→17:12)
[2021-12-16] MEDS: Aspirin 81 MG TAB.CHEW PO SCH (08:58)
[2021-12-16] MEDS: *HR* Amiodarone 200 MG TABLET PO SCH (08:58)
[2021-12-16] MEDS: Cyanocobalamin (B-12) 1,000 MCG TABLET PO SCH (08:58)
[2021-12-16] MEDS: Ascorbic Acid 500 MG TABLET PO SCH ×2 (08:58→21:49)
[2021-12-16] MEDS: Zinc Sulfate 220 MG CAPSULE PO SCH (08:58)
[2021-12-16] MEDS: cephALEXin 500 MG CAPSULE PO SCH ×3 (09:00→21:49)
[2021-12-16] MEDS: Insulin LISPRO 300 UNITS/3 ML VIAL SUBQ SCH ×4 (09:00→21:50)
[2021-12-16] MEDS: Insulin DETEMIR 100 UNIT/ML X5UNITS SUBQ SCH (09:01)
[2021-12-16] MEDS: Nystatin POWDER 30 GM BOTTLE TP SCH ×2 (09:51→21:50)
[2021-12-16] MEDS: traZODone 50 MG TABLET PO SCH (21:47)
[2021-12-16] MEDS: *HR* OxyCODONE Immed Rel 5 MG TABLET PO PRN (21:48)
[2021-12-17] MEDS: *HR* OxyCODONE Immed Rel 5 MG TABLET PO PRN ×3 (06:32→21:31)
[2021-12-17] MEDS: Pregabalin 75 MG CAPSULE PO SCH ×2 (09:44→21:31)
[2021-12-17] MEDS: Multivit/Ca/Min/Fe/FA 1 TAB TABLET PO SCH (09:44)
[2021-12-17] MEDS: Apixaban 5 MG TABLET PO SCH ×2 (09:44→21:31)
[2021-12-17] MEDS: *HR* Amiodarone 200 MG TABLET PO SCH (09:44)
[2021-12-17] MEDS: Ascorbic Acid 500 MG TABLET PO SCH ×2 (09:44→21:32)
[2021-12-17] MEDS: Cyanocobalamin (B-12) 1,000 MCG TABLET PO SCH (09:45)
[2021-12-17] MEDS: Aspirin 81 MG TAB.CHEW PO SCH (09:45)
[2021-12-17] MEDS: Zinc Sulfate 220 MG CAPSULE PO SCH (09:45)
[2021-12-17] MEDS: Sennosides 8.6 MG TABLET PO SCH ×2 (09:45→21:32)
[2021-12-17] MEDS: Magnesium Oxide 400 MG TABLET PO SCH ×2 (09:45→21:31)
[2021-12-17] MEDS: Furosemide 40 MG TABLET PO SCH ×2 (09:45→15:33)
[2021-12-17] MEDS: Cholecalciferol (D-3) 1,000 UNIT (25MCG) TABLET PO SCH (09:45)
[2021-12-17] MEDS: Insulin DETEMIR 100 UNIT/ML X5UNITS SUBQ SCH (09:46)
[2021-12-17] MEDS: cephALEXin 500 MG CAPSULE PO SCH ×3 (09:46→21:32)
[2021-12-17] MEDS: Insulin LISPRO 300 UNITS/3 ML VIAL SUBQ SCH ×4 (11:36→21:33)
[2021-12-17] MEDS: Nystatin POWDER 30 GM BOTTLE TP SCH ×2 (11:38→21:34)
[2021-12-17] MEDS: traZODone 50 MG TABLET PO SCH (21:31)
[2021-12-18] MEDS: Acetaminophen 325 MG TABLET PO PRN (00:40)
[2021-12-18 05:57] LABS: Hematocrit 36.8 % (37.5-50.1); Hemoglobin 11.1 g/dL (12.9-16.9); Mean Corpuscular HGB Conc 30.2 g/dL (31.6-35.5); Mean Corpuscular Hemoglobin 26.4 pg (28.0-33.3); Mean Corpuscular Volume 87.4 fL (83.0-100.0); Mean Platelet Volume 11.3 fL (9.4-12.4); Platelet Count 355 K/mcL (140-400); Red Blood Count 4.21 M/mcL (4.19-5.50); Red Cell Distribution Width 15.8 % (11.5-14.5); White Blood Count 10.8 K/mcL (4.3-11.1)
[2021-12-18 06:20] LABS: Alanine Aminotransferase 11 Units/L (7-52); Albumin 3.5 g/dL (3.5-5.7); Albumin/Globulin Ratio 1.1 (1.1-2.2); Alkaline Phosphatase 53 Units/L (34-104); Aspartate Amino Transferase 9 Units/L (13-39); BUN/Creatinine Ratio 35 (6-26); Bilirubin,Total 0.3 mg/dL (0.3-1.0); Blood Urea Nitrogen 28 mg/dL (6-20); Calcium 9.4 mg/dL (8.6-10.3); Carbon Dioxide 34 mEq/L (23-29); Chloride 96 mEq/L (98-107); Globulin 3.1 g/dL (2.4-3.5); Glucose 330 mg/dL (70-105); Magnesium 1.5 mg/dL (1.6-2.6); Osmolality,Calculated 300 (280-300); Potassium 3.9 mEq/L (3.5-5.1); Sodium 136 mEq/L (136-145); Total Protein 6.6 g/dL (6.4-8.9); eGFR For African Americans > 60 (> 60); eGFR For Non-African Americans > 60 (> 60)
[2021-12-18] MEDS: Insulin DETEMIR 100 UNIT/ML X5UNITS SUBQ SCH (08:18)
[2021-12-18] MEDS: *HR* Amiodarone 200 MG TABLET PO SCH (08:18)
[2021-12-18] MEDS: Multivit/Ca/Min/Fe/FA 1 TAB TABLET PO SCH (08:18)
[2021-12-18] MEDS: Zinc Sulfate 220 MG CAPSULE PO SCH (08:18)
[2021-12-18] MEDS: Magnesium Oxide 400 MG TABLET PO SCH ×2 (08:18→21:11)
[2021-12-18] MEDS: Ascorbic Acid 500 MG TABLET PO SCH ×2 (08:18→21:13)
[2021-12-18] MEDS: Apixaban 5 MG TABLET PO SCH ×2 (08:18→21:10)
[2021-12-18] MEDS: Cyanocobalamin (B-12) 1,000 MCG TABLET PO SCH (08:18)
[2021-12-18] MEDS: Furosemide 40 MG TABLET PO SCH ×2 (08:18→17:06)
[2021-12-18] MEDS: Aspirin 81 MG TAB.CHEW PO SCH (08:18)
[2021-12-18] MEDS: Sennosides 8.6 MG TABLET PO SCH ×2 (08:18→21:13)
[2021-12-18] MEDS: Pregabalin 75 MG CAPSULE PO SCH ×2 (08:18→21:12)
[2021-12-18] MEDS: Cholecalciferol (D-3) 1,000 UNIT (25MCG) TABLET PO SCH (08:18)
[2021-12-18] MEDS: Nystatin POWDER 30 GM BOTTLE TP SCH ×2 (08:19→21:20)
[2021-12-18] MEDS: Insulin LISPRO 300 UNITS/3 ML VIAL SUBQ SCH ×4 (08:19→21:17)
[2021-12-18] MEDS: cephALEXin 500 MG CAPSULE PO SCH ×3 (08:19→21:15)
[2021-12-18] MEDS: *HR* OxyCODONE Immed Rel 5 MG TABLET PO PRN ×2 (12:22→21:14)
[2021-12-18] MEDS ORDERED: Magnesium Oxide 400 MG TABLET PO SCH (21:00)
[2021-12-18] MEDS: traZODone 50 MG TABLET PO SCH (21:13)
[2021-12-19] MEDS: *HR* OxyCODONE Immed Rel 5 MG TABLET PO PRN ×2 (04:03→16:36)
[2021-12-19] MEDS: Insulin LISPRO 300 UNITS/3 ML VIAL SUBQ SCH ×4 (08:07→21:05)
[2021-12-19] MEDS: Insulin DETEMIR 100 UNIT/ML X5UNITS SUBQ SCH (08:07)
[2021-12-19] MEDS: Cyanocobalamin (B-12) 1,000 MCG TABLET PO SCH (08:08)
[2021-12-19] MEDS: Multivit/Ca/Min/Fe/FA 1 TAB TABLET PO SCH (08:08)
[2021-12-19] MEDS: *HR* Amiodarone 200 MG TABLET PO SCH (08:08)
[2021-12-19] MEDS: Magnesium Oxide 400 MG TABLET PO SCH ×2 (08:08→21:07)
[2021-12-19] MEDS: Ascorbic Acid 500 MG TABLET PO SCH ×2 (08:08→21:07)
[2021-12-19] MEDS: Sennosides 8.6 MG TABLET PO SCH ×2 (08:08→21:06)
[2021-12-19] MEDS: Apixaban 5 MG TABLET PO SCH ×2 (08:08→21:06)
[2021-12-19] MEDS: Pregabalin 75 MG CAPSULE PO SCH ×2 (08:09→21:07)
[2021-12-19] MEDS: Zinc Sulfate 220 MG CAPSULE PO SCH (08:09)
[2021-12-19] MEDS: Cholecalciferol (D-3) 1,000 UNIT (25MCG) TABLET PO SCH (08:09)
[2021-12-19] MEDS: Aspirin 81 MG TAB.CHEW PO SCH (08:09)
[2021-12-19] MEDS: Furosemide 40 MG TABLET PO SCH ×2 (08:09→16:32)
[2021-12-19] MEDS: Nystatin POWDER 30 GM BOTTLE TP SCH ×2 (08:09→21:11)
[2021-12-19] MEDS: cephALEXin 500 MG CAPSULE PO SCH ×3 (08:09→21:08)
[2021-12-19] MEDS: traZODone 50 MG TABLET PO SCH (21:07)
[2021-12-20] MEDS: Cyanocobalamin (B-12) 1,000 MCG TABLET PO SCH (09:40)
[2021-12-20] MEDS: Multivit/Ca/Min/Fe/FA 1 TAB TABLET PO SCH (09:40)
[2021-12-20] MEDS: *HR* OxyCODONE Immed Rel 5 MG TABLET PO PRN (09:40)
[2021-12-20] MEDS: Pregabalin 75 MG CAPSULE PO SCH ×2 (09:40→20:37)
[2021-12-20] MEDS: Cholecalciferol (D-3) 1,000 UNIT (25MCG) TABLET PO SCH (09:40)
[2021-12-20] MEDS: *HR* Amiodarone 200 MG TABLET PO SCH (09:40)
[2021-12-20] MEDS: Sennosides 8.6 MG TABLET PO SCH ×2 (09:40→20:37)
[2021-12-20] MEDS: Apixaban 5 MG TABLET PO SCH ×2 (09:41→20:37)
[2021-12-20] MEDS: Furosemide 40 MG TABLET PO SCH ×2 (09:41→15:14)
[2021-12-20] MEDS: Ascorbic Acid 500 MG TABLET PO SCH ×2 (09:41→20:37)
[2021-12-20] MEDS: Aspirin 81 MG TAB.CHEW PO SCH (09:41)
[2021-12-20] MEDS: Magnesium Oxide 400 MG TABLET PO SCH ×2 (09:41→20:37)
[2021-12-20] MEDS: Zinc Sulfate 220 MG CAPSULE PO SCH (09:41)
[2021-12-20] MEDS: cephALEXin 500 MG CAPSULE PO SCH ×3 (09:42→20:37)
[2021-12-20] MEDS: Insulin LISPRO 300 UNITS/3 ML VIAL SUBQ SCH ×4 (09:45→20:36)
[2021-12-20] MEDS: Insulin DETEMIR 100 UNIT/ML X5UNITS SUBQ SCH (12:22)
[2021-12-20] MEDS: Nystatin POWDER 30 GM BOTTLE TP SCH ×2 (15:15→22:18)
[2021-12-20] MEDS: traZODone 50 MG TABLET PO SCH (20:37)
[2021-12-21 06:53] VITALS: BP 122/73; PULSE 81; TEMP 97.7
[2021-12-21] MEDS: Pregabalin 75 MG CAPSULE PO SCH (07:46)
[2021-12-21] MEDS: Furosemide 40 MG TABLET PO SCH (07:46)
[2021-12-21] MEDS: Sennosides 8.6 MG TABLET PO SCH (07:46)
[2021-12-21] MEDS: Apixaban 5 MG TABLET PO SCH (07:46)
[2021-12-21] MEDS: Magnesium Oxide 400 MG TABLET PO SCH (07:46)
[2021-12-21] MEDS: Zinc Sulfate 220 MG CAPSULE PO SCH (07:46)
[2021-12-21] MEDS: *HR* Amiodarone 200 MG TABLET PO SCH (07:46)
[2021-12-21] MEDS: Insulin DETEMIR 100 UNIT/ML X5UNITS SUBQ SCH (07:47)
[2021-12-21] MEDS: Multivit/Ca/Min/Fe/FA 1 TAB TABLET PO SCH (07:47)
[2021-12-21] MEDS: Cholecalciferol (D-3) 1,000 UNIT (25MCG) TABLET PO SCH (07:47)
[2021-12-21] MEDS: Ascorbic Acid 500 MG TABLET PO SCH (07:47)
[2021-12-21] MEDS: Cyanocobalamin (B-12) 1,000 MCG TABLET PO SCH (07:47)
[2021-12-21] MEDS: Aspirin 81 MG TAB.CHEW PO SCH (07:47)
[2021-12-21] MEDS: cephALEXin 500 MG CAPSULE PO SCH (07:48)
[2021-12-21] MEDS: Nystatin POWDER 30 GM BOTTLE TP SCH (07:48)
[2021-12-21] MEDS: Insulin LISPRO 300 UNITS/3 ML VIAL SUBQ SCH (07:48)
[2021-12-21 10:10] VITALS: RESP 16; O2SAT 98
== END 2021-12-21 11:45 | disposition home or self-care (01) ==
LOC: INPGRE 11-21 13:45
PROVIDERS: ADMIT Family Medicine; ATTEND Family Medicine